=== PATIENT | female | born 1955 | race Caucasian/White ===

== ENCOUNTER → 2017-02-04 | Outpatient (CLI) | payer OTHER ==
--- NOTE | 2017-02-05 11:33 | MM ---
Reason for exam: screening (asymptomatic). Baseline mammogram. History: Patient is postmenopausal. Physical Findings: Nurse did not find any significant physical abnormalities on exam. MG Screening Mammo w CAD Bilateral CC and MLO view(s) were taken. There are scattered fibroglandular densities. Finding: There are grouped/clustered calcifications in the upper outer quadrant, middle position of the left breast 5cm from the nipple. Focal asymmetry in the left upper outer quadrant. These results were verbally communicated with the patient and result sheet given to the patient on 02/04/17. ASSESSMENT: Incomplete: need additional imaging evaluation, BI-RAD 0 RECOMMENDATION: Special view mammogram of the left breast. If lesion persists on supplemental views, image directed ultrasound is recommended. [facility] will attempt to contact patient to return for supplemental views and ultrasound if indicated.
--- NOTE | 2017-02-05 11:38 | MM ---
Reason for exam: additional evaluation requested from abnormal screening. History: Patient is postmenopausal. Physical Findings: Breast exam preformed at baseline screening. MG Work Up Mamm w CAD LT LM, CC with magnification, and LM with magnification view(s) were taken of the left breast. There are scattered fibroglandular densities. Finding: There are coarse heterogeneous, grouped/clustered calcifications in the upper outer quadrant, anterior position of the left breast. These results were verbally communicated with the patient and result sheet given to the patient on 02/04/17. ASSESSMENT: Suspicious, BI-RAD 4 RECOMMENDATION: Surgical consultation and stereotactic core biopsy of the left breast. Called Dr. Jesus with mammographic findings and has scheduled an appointment for the patient with Dr. Calixto. Biopsy scheduled for 02/12/17 at 8:00. PRELIMINARY REPORT CALLED AND FAXED TO DR. CALIXTO ON 02/05/17.
== END | disposition home or self-care (01) ==
LOC: RADMAMWWP 15:31
PROVIDERS: ATTEND Family Medicine
DX: Z12.31 Encounter for screening mammogram for malignant neoplasm of breast (principal); R92.8 Other abnormal and inconclusive findings on diagnostic imaging of breast
CPT/HCPCS: G0202; G0206

== ENCOUNTER 2018-03-29 14:20 | Emergency (ER) | payer OTHER ==
[2018-03-29 14:38] VITALS: PULSE 80; TEMP 98.5
[2018-03-29 14:59] LABS: Basophils # (A) 0.1 k/uL (0-0.2); Basophils % (A) 1 %; Eosinophils # (A) 0.2 k/uL (0-0.7); Eosinophils % (A) 1 %; HCT 42.3 % (34.0-46.0); HGB 13.4 gm/dL (11.4-16.0); Lymphocytes # (A) 0.9 k/uL (1.0-4.8); Lymphocytes % (A) 6 %; MCH 28.7 pg (25.0-35.0); MCHC 31.7 g/dL (31.0-37.0); MCV 90.5 fL (80.0-100.0); Mean Platelet Volume 6.5; Monocytes # (A) 0.6 k/uL (0-1.0); Monocytes % (A) 4 %; Neutrophils # (A) 12.5 k/uL (1.3-7.7); Neutrophils % (A) 87 %; Platelet Count 480 k/uL (150-450); RBC 4.67 m/uL (3.80-5.40); RDW 14.5 % (11.5-15.5); WBC 14.3 k/uL (3.8-10.6)
[2018-03-29 15:09] LABS: ALT 60 U/L (9-52); AST 111 U/L (14-36); Albumin 3.5 g/dL (3.5-5.0); Alkaline Phosphatase 466 U/L (38-126); Amylase 52 U/L (30-110); Anion Gap 15 mmol/L; Blood Urea Nitrogen 11 mg/dL (7-17); Calcium 9.2 mg/dL (8.4-10.2); Carbon Dioxide 24 mmol/L (22-30); Chloride 97 mmol/L (98-107); Glucose 94 mg/dL (74-99); Lipase 96 U/L (23-300); Potassium 3.7 mmol/L (3.5-5.1); Sodium 136 mmol/L (137-145); Total Bilirubin 7.4 mg/dL (0.2-1.3)
[2018-03-29] MEDS ORDERED: ONDANSETRON 4 MG/2 ML VIAL IVP STA (16:37)
[2018-03-29] MEDS ORDERED: SODIUM CHLORIDE 0.9% 1,000 ML IV STA (16:37)
[2018-03-29] MEDS ORDERED: MORPHINE SULFATE 4 MG/ML SYRINGE IV STA (16:37)
--- NOTE | 2018-03-29 16:42 | ED ---
General Adult HPI - General Chief complaint: Recheck/Abnormal Lab/Rx Stated complaint: dehydration, R side pain, CA PT Time Seen by Provider: 03/29/18 15:46 Source: patient, family, RN notes reviewed Mode of arrival: wheelchair Limitations: no limitations - History of Present Illness Initial comments: 62-year-old female with a past medical history of liver cancer diagnosed 8 weeks ago with biliary drain placement presents to the emergency department for a chief complaint of right sided abdominal pain. Patient states this has been ongoing for the past few days. Patient is nauseous and has not had fluids or food in the past 2 days. She states her pain is not controlled at home at this time. Patient denies fevers or chills. Patient has not yet started chemotherapy and is awaiting port placement.Patient has no other complaints at this time including shortness of breath, chest pain, headache, or visual changes. - Related Data Home Medications Medication Instructions Recorded Confirmed Ciprofloxacin HCl [Cipro] 500 mg PO BID 03/29/18 03/29/18 Dronabinol [Marinol] 10 mg PO HS 03/29/18 03/29/18 Mag Hydrox/Al Hydrox/Simeth 15 ml PO Q6HR PRN 03/29/18 03/29/18 [Maalox] Prochlorperazine [Compazine] 5 mg PO Q6HR PRN 03/29/18 03/29/18 Ranitidine HCl [Zantac] 150 mg PO DAILY 03/29/18 03/29/18 diphenhydrAMINE [Benadryl] 25 mg PO Q6HR 03/29/18 03/29/18 fentaNYL [Duragesic 50MCG/HR] 1 patch TRANSDERM Q72H 03/29/18 03/29/18 hydrOXYzine HCL [Atarax] 25 mg PO Q6HR 03/29/18 03/29/18 oxyCODONE HCL [OxyIR] 5 mg PO Q6HR PRN 03/29/18 03/29/18 Allergies Allergy/AdvReac Type Severity Reaction Status Date / Time codeine Allergy Nausea & Verified 03/29/18 15:56 Vomiting & Diarrhea Review of Systems ROS Statement: Those systems with pertinent positive or pertinent negative responses have been documented in the HPI. ROS Other: All systems not noted in ROS Statement are negative. Past Medical History Past Medical History: Cancer History of Any Multi-Drug Resistant Organisms: None Reported Past Surgical History: Orthopedic Surgery, Tubal Ligation Additional Past Surgical History / Comment(s): biliary duct placement Past Psychological History: No Psychological Hx Reported Smoking Status: Never smoker Past Alcohol Use History: None Reported Past Drug Use History: None Reported General Exam Limitations: no limitations General appearance: alert, in no apparent distress Head exam: Present: atraumatic, normocephalic, normal inspection Eye exam: Present: normal appearance, PERRL, EOMI, scleral icterus (bilat). Absent: conjunctival injection, periorbital swelling ENT exam: Present: normal exam, mucous membranes moist Neck exam: Present: normal inspection, full ROM. Absent: tenderness, meningismus, lymphadenopathy Respiratory exam: Present: normal lung sounds bilaterally. Absent: respiratory distress, wheezes, rales, rhonchi, stridor Cardiovascular Exam: Present: regular rate, normal rhythm, normal heart sounds. Absent: systolic murmur, diastolic murmur, rubs, gallop, clicks GI/Abdominal exam: Present: tenderness (Right lower quadrant and right upper quadrant tenderness with guarding present.), guarding, other (There is a drain to in the right upper quadrant of the abdomen, non-erythematous, no evidence of infection.) Neurological exam: Present: alert, oriented X3, CN II-XII intact Psychiatric exam: Present: normal affect, normal mood Skin exam: Absent: normal color (jaundice) Course Vital Signs 03/29/18 14:33 Temperature 98.5 F Pulse Rate 80 Respiratory 18 Rate Blood Pressure 117/77 O2 Sat by Pulse 98 Oximetry EKG Findings - EKG Comments: EKG Findings:: EKG shows a normal sinus rhythm, ventricular rate 72, WA interval 128, QTc 473 Medical Decision Making - Medical Decision Making 62-year-old female presents to the emergency department for a chief complaint of right-sided abdominal pain 2 days. Patient has a history of liver cancer diagnosed 8 weeks ago with biliary drain placement. Patient states the pain has been ongoing for the past few days. She states she has been nauseous and not tolerating solids or liquids. Patient currently awaiting port placement, has not had chemotherapy yet. Patient is afebrile in the emergency department, with a pulse of 80 and a normotensive blood pressure. CBC does show a white count of 14. Total bilirubin 7.4, last read showed 8.4 on the 03/26/2018. Alkaline phosphatase 466 which is is elevated from 395 on 03/26/2018. CT of the abdomen shows dilation of the anterior biliary tree. There is dilated gallbladder suggestive of cystic duct obstruction. No significant dilation of the posterior right hepatic lobe bile ducts. Drainage catheter malfunction should be considered due to dilated gallbladder. Patient had a drain placed at 314. She will be transferred there, admitted to Dr Pace. - Lab Data Result diagrams: 03/29/18 14:47 03/29/18 14:47 Lab Results 03/29/18 03/29/18 03/29/18 Range/Units 14:47 14:47 14:47 WBC 14.3 H (3.8-10.6) k/uL RBC 4.67 (3.80-5.40) m/uL Hgb 13.4 (11.4-16.0) gm/dL Hct 42.3 (34.0-46.0) % MCV 90.5 (80.0-100.0) fL MCH 28.7 (25.0-35.0) pg MCHC 31.7 (31.0-37.0) g/dL RDW 14.5 (11.5-15.5) % Plt Count 480 H (150-450) k/uL Neutrophils % 87 % Lymphocytes % 6 % Monocytes % 4 % Eosinophils % 1 % Basophils % 1 % Neutrophils # 12.5 H (1.3-7.7) k/uL Lymphocytes # 0.9 L (1.0-4.8) k/uL Monocytes # 0.6 (0-1.0) k/uL Eosinophils # 0.2 (0-0.7) k/uL Basophils # 0.1 (0-0.2) k/uL Sodium 136 L (137-145) mmol/L Potassium 3.7 (3.5-5.1) mmol/L Chloride 97 L (98-107) mmol/L Carbon Dioxide 24 (22-30) mmol/L Anion Gap 15 mmol/L BUN 11 (7-17) mg/dL Creatinine 0.58 (0.52-1.04) mg/dL Est GFR (CKD-EPI)AfAm >90 (>60 ml/min/1.73 sqM) Est GFR (CKD-EPI)NonAf >90 (>60 ml/min/1.73 sqM) Glucose 94 (74-99) mg/dL Calcium 9.2 (8.4-10.2) mg/dL Total Bilirubin 7.4 H (0.2-1.3) mg/dL AST 111 H (14-36) U/L ALT 60 H (9-52) U/L Alkaline Phosphatase 466 H (38-126) U/L Troponin I <0.012 (0.000-0.034) ng/mL Total Protein 7.0 (6.3-8.2) g/dL Albumin 3.5 (3.5-5.0) g/dL Amylase 52 (30-110) U/L Lipase 96 (23-300) U/L Urine Color Urine Appearance (Clear) Urine pH (5.0-8.0) Ur Specific [place] (1.001-1.035) Urine Protein (Negative) Urine Glucose (UA) (Negative) Urine Ketones (Negative) Urine Blood (Negative) Urine Nitrite (Negative) Urine Bilirubin (Negative) Urine Urobilinogen (<2.0) mg/dL Ur Leukocyte Esterase (Negative) Urine RBC (0-5) /hpf Urine WBC (0-5) /hpf Ur Squamous Epith Cells (0-4) /hpf Urine Mucus (None) /hpf 03/29/18 Range/Units 16:15 WBC (3.8-10.6) k/uL RBC (3.80-5.40) m/uL Hgb (11.4-16.0) gm/dL Hct (34.0-46.0) % MCV (80.0-100.0) fL MCH (25.0-35.0) pg MCHC (31.0-37.0) g/dL RDW (11.5-15.5) % Plt Count (150-450) k/uL Neutrophils % % Lymphocytes % % Monocytes % % Eosinophils % % Basophils % % Neutrophils # (1.3-7.7) k/uL Lymphocytes # (1.0-4.8) k/uL Monocytes # (0-1.0) k/uL Eosinophils # (0-0.7) k/uL Basophils # (0-0.2) k/uL Sodium (137-145) mmol/L Potassium (3.5-5.1) mmol/L Chloride (98-107) mmol/L Carbon Dioxide (22-30) mmol/L Anion Gap mmol/L BUN (7-17) mg/dL Creatinine (0.52-1.04) mg/dL Est GFR (CKD-EPI)AfAm (>60 ml/min/1.73 sqM) Est GFR (CKD-EPI)NonAf (>60 ml/min/1.73 sqM) Glucose (74-99) mg/dL Calcium (8.4-10.2) mg/dL Total Bilirubin (0.2-1.3) mg/dL AST (14-36) U/L ALT (9-52) U/L Alkaline Phosphatase (38-126) U/L Troponin I (0.000-0.034) ng/mL Total Protein (6.3-8.2) g/dL Albumin (3.5-5.0) g/dL Amylase (30-110) U/L Lipase (23-300) U/L Urine Color Dark Brown Urine Appearance Cloudy H (Clear) Urine pH 5.5 (5.0-8.0) Ur Specific [place] 1.019 (1.001-1.035) Urine Protein 1+ H (Negative) Urine Glucose (UA) Negative (Negative) Urine Ketones 2+ H (Negative) Urine Blood Negative (Negative) Urine Nitrite Negative (Negative) Urine Bilirubin 2+ H (Negative) Urine Urobilinogen 2.0 (<2.0) mg/dL Ur Leukocyte Esterase Small H (Negative) Urine RBC 2 (0-5) /hpf Urine WBC 9 H (0-5) /hpf Ur Squamous Epith Cells 8 H (0-4) /hpf Urine Mucus Many H (None) /hpf Disposition Clinical Impression: Liver cancer, Gallbladder dilatation Disposition: OTHER INSTITUTION NOT DEFINED Condition: Good Referrals: Jhonatan Solomon MD [Primary Care Provider] - 1-2 days - Out of Hospital Transfer - Req. Specs Out of Hospital Transfer - Requested Specifics: Other Non-Acute ([facility])
[2018-03-29 17:06] LABS: Appearance,Urine Cloudy (Clear); Bilirubin,Urine 2+ (Negative); Blood,Urine Negative (Negative); Color,Urine Dark Brown; Glucose,Urine (UA) Negative (Negative); Ketones,Urine 2+ (Negative); Leukocyte Esterase,Urine Small (Negative); Mucus,Urine Many /hpf; Nitrite,Urine Negative (Negative); PH, Urine 5.5 (5.0-8.0); Protein,Urine 1+ (Negative); RBC,Urine 2 /hpf (0-5); Specific Gravity,Urine 1.019 (1.001-1.035); Squamous Epithelial Cell,Urine 8 /hpf (0-4); WBC,Urine 9 /hpf (0-5)
--- NOTE | 2018-03-29 17:24 | XR ---
EXAMINATION TYPE: XR chest 2V DATE OF EXAM: 03/29/2018 COMPARISON: NONE HISTORY: Abdominal pain TECHNIQUE: Frontal and lateral views of the chest are obtained. FINDINGS: Heart and mediastinum are normal. There is no heart failure. Lungs are clear of consolidat ion. There is slight elevated right diaphragm. Bony thorax is intact. There is a catheter over the ri ght upper quadrant of the abdomen. IMPRESSION: Slight elevated right diaphragm. Otherwise negative exam. Normal heart.
--- NOTE | 2018-03-29 17:39 | CT ---
EXAMINATION TYPE: CT abdomen pelvis w con DATE OF EXAM: 03/29/2018 COMPARISON: None HISTORY: Right sided abdominal pain with nausea. History of cancer to biliary region. CT DLP: 644.3 mGycm Automated exposure control for dose reduction was used. TECHNIQUE: Helical acquisition of images was performed from the lung bases through the pelvis. CONTRAST: Performed without Oral Contrast and with IV Contrast, patient injected with 100 mL of Isovue 300. FINDINGS: There is percutaneous drainage catheter in the biliary tree in the right upper quadrant. There is a b iliary stent in the common bile duct. There are a few air bubbles in the anterior bile ducts. There i s mild dilation of the bile ducts in the anterior right lobe of the liver. Gallbladder is dilated wit h slight thickening of the wall. Gallbladder measures 5.7 cm in diameter. There are calcified splenic granulomata. I see no evidence of a pancreatic mass. There is no adrenal mass. Kidneys show satisfactory contrast opacification. There is no hydronephrosi s. There are 1 cm cortical cysts in the right kidney. There is no retroperitoneal adenopathy. Bladder distends smoothly. There is no inguinal hernia. There are multiple dilated pelvic veins on th e left side. Uterus is anteverted. There is some cystic fluid in the right side of the pelvis. Some o f the fluid appears to be free fluid. There is a 5.5 cm cyst at the floor of the pelvis on the right side adjacent to the uterus that is probably ovarian cyst. There is no ascites. There are sigmoid div erticula without evidence of diverticulitis. There is no mesenteric edema or adenopathy. I do not see any significant adenopathy at the hepatopancreatic lymph nodes. There is small umbilical hernia that contains fat. IMPRESSION: THERE IS SOME DILATION OF THE ANTERIOR BILIARY TREE. THERE IS DILATED GALLBLADDER SUGGESTIVE OF CYSTI C DUCT OBSTRUCTION. I SEE NO SIGNIFICANT DILATION OF THE POSTERIOR RIGHT HEPATIC LOBE BILE DUCTS. DRA SHEARER CATHETER MALFUNCTION SHOULD BE CONSIDERED IN VIEW OF THE DILATED GALLBLADDER. CATHETERS APPEAR TO BE IN GOOD POSITION. Large cyst in the pelvis is probably ovarian cyst. Minimal free fluid in the pelvis on the right side .
[2018-03-29] MEDS ORDERED: MORPHINE SULFATE 4 MG/ML SYRINGE IVP STA (20:49)
[2018-03-29 21:00] VITALS: BP 120/79; RESP 16
== END 2018-03-29 20:59 | disposition other institution (70) ==
LOC: EC 14:20
DX: K82.8 Other specified diseases of gallbladder (principal); C22.9 Malignant neoplasm of liver, not specified as primary or secondary; R74.8 Abnormal levels of other serum enzymes; Z79.891 Long term (current) use of opiate analgesic; Z79.899 Other long term (current) drug therapy; Z88.5 Allergy status to narcotic agent; Z96.89 Presence of other specified functional implants
CPT/HCPCS: 36415; 93005; 80053; 82150; 83690; 84484; 85025; 81001; 87040; 87086; 87077; 87186; 71046; 74177; 99285; 96374; 96375; 96376; 96361; J2270; J2405; Q9967

== ENCOUNTER 2018-04-14 10:08 | Day surgery (SDC) | payer OTHER ==
[2018-04-09 12:42] VITALS: BMI 23.1
[~2018-04-14 10:08] MED LIST: DEXAMETHASONE SOD PHOSPHATE 10 MG/ML 1 ML VIAL IV ONE; LACTATED RINGERS 1,000 ML IV SCH; MIDAZOLAM 2 MG/2 ML VIAL IV PRN; ONDANSETRON 4 MG/2 ML VIAL IVP ONE; Pre Op ABX Message 1 EACH MISC MISCELLANE ONE; SCOPOLAMINE 1.5MG/72HR PATCH TRANSDERM ONE; fentaNYL (PF) 50 MCG/ML 2 ML AMP IV PRN
[2018-04-14] MEDS ORDERED: LIDOCAINE (PF) 10 MG/ML 2 ML VIAL SQ ONE (12:15)
[2018-04-14] MEDS ORDERED: HEPARIN SODIUM,PORCINE 100 UNIT/ML 5 ML VIAL IV ONE (12:15)
[2018-04-14] MEDS ORDERED: LIDOCAINE 1% INJ 10MG/ML (20 ML MDV) SQ ONE ×2 (12:15)
--- NOTE | 2018-04-14 12:23 | P.GSHP ---
History of Present Illness H&P Date: 04/14/18 Chief Complaint: Cholangiocarcinoma 62-year-old female recently diagnosed with cholangiocarcinoma. Here today for Port-A-Cath placement. Patient has had significant dry heaves for the last few days. She has had very little oral liquid or solid intake because of her bad nausea. Taking a large volume of pain medications. Minimal emesis with her nausea. Past Medical History Past Medical History: Cancer, GERD/Reflux Additional Past Medical History / Comment(s): CA BILE DUCT 02/05/18, HAS 2 DRAIN TUBES. POOR APPETITE, DRY HEAVES CURRENTLY. WGT LOSS 30# SINCE 01/2018. History of Any Multi-Drug Resistant Organisms: None Reported Past Surgical History: Orthopedic Surgery, Tubal Ligation Additional Past Surgical History / Comment(s): RT KNEE SCOPE. CATARACTS. Biliary duct STENTS X2, DRAIN TUBES X3 PLACED - THRU [facility]. Past Anesthesia/Blood Transfusion Reactions: Motion Sickness, Postoperative Nausea & Vomiting (PONV) Past Psychological History: Depression Additional Psychological History / Comment(s): SOME R/T HEALTH Smoking Status: Never smoker Past Alcohol Use History: None Reported Past Drug Use History: None Reported - Past Family History Mother Family Medical History: Myocardial Infarction ([place]) Father Family Medical History: COPD Medications and Allergies Home Medications Medication Instructions Recorded Confirmed Type Dronabinol [Marinol] 10 mg PO HS 03/29/18 04/09/18 History Mag Hydrox/Al Hydrox/Simeth 15 ml PO Q6HR PRN 03/29/18 04/09/18 History [Maalox] Prochlorperazine [Compazine] 5 mg PO Q6HR PRN 03/29/18 04/09/18 History Ranitidine HCl [Zantac] 150 mg PO DAILY 03/29/18 04/09/18 History diphenhydrAMINE [Benadryl] 25 mg PO Q6HR PRN 03/29/18 04/09/18 History Gabapentin [Neurontin] 100 mg PO TID 04/09/18 04/09/18 History Methocarbamol [Robaxin] 500 mg PO TID 04/09/18 04/09/18 History fentaNYL 75MCG/HR PATCH [Duragesic 75 mcg TRANSDERM Q72H 04/09/18 04/09/18 History 75MCG/HR] oxyCODONE HCL 10 mg PO Q3H PRN 04/09/18 04/09/18 History Allergies Allergy/AdvReac Type Severity Reaction Status Date / Time codeine Allergy Nausea & Verified 04/09/18 12:13 Vomiting & Diarrhea Surgical - Exam Vital Signs Temp Pulse Resp BP Pulse Ox 98.0 F 73 18 139/66 96 04/14/18 10:34 04/14/18 10:34 04/14/18 10:34 04/14/18 10:34 04/14/18 10:34 Physical exam: General: Well-developed, well-nourished HEENT: Normocephalic, sclerae nonicteric Abdomen: Nontender, nondistended Extremities: No edema Neuro: Alert and oriented Results - Labs 04/14/18 10:45 Abnormal Lab Results - Last 24 Hours (Table) 04/14/18 Range/Units 10:45 Sodium 136 L (137-145) mmol/L Chloride 92 L (98-107) mmol/L Diabetes panel 04/14/18 Range/Units 10:45 Sodium 136 L (137-145) mmol/L Potassium 4.0 (3.5-5.1) mmol/L Chloride 92 L (98-107) mmol/L Carbon Dioxide 30 (22-30) mmol/L Pituitary panel 04/14/18 Range/Units 10:45 Sodium 136 L (137-145) mmol/L Potassium 4.0 (3.5-5.1) mmol/L Chloride 92 L (98-107) mmol/L Carbon Dioxide 30 (22-30) mmol/L Adrenal panel 04/14/18 Range/Units 10:45 Sodium 136 L (137-145) mmol/L Potassium 4.0 (3.5-5.1) mmol/L Chloride 92 L (98-107) mmol/L Carbon Dioxide 30 (22-30) mmol/L Assessment and Plan (1) Cholangiocarcinoma Narrative/Plan: Will proceed with Port-A-Cath placement at this time. Risks of bleeding, infection, DVT, pneumothorax, catheter malfunction, anesthesia related complications were discussed. The patient understands and wishes to proceed. Patient may require admission for hydration and oncology evaluation postoperatively. Current Visit: Yes Status: Acute Code(s): C22.1 - INTRAHEPATIC BILE DUCT CARCINOMA SNOMED Code(s): 361067972
[2018-04-14] MEDS ORDERED: fentaNYL (PF) 50 MCG/ML 2 ML AMP ONE (12:30)
[2018-04-14] MEDS ORDERED: MIDAZOLAM 2 MG/2 ML VIAL ONE (12:30)
[2018-04-14] MEDS ORDERED: PROPOFOL 10 MG/ML 20 ML VIAL IV ONE (12:30)
[2018-04-14] MEDS ORDERED: SODIUM CHLORIDE 0.9% 50 ML with ceFAZolin 2,000 MG IV ONE ×2 (12:50)
[2018-04-14 13:31] VITALS: TEMP 97
--- NOTE | 2018-04-14 13:32 | FL ---
EXAMINATION TYPE: FL guided central line placemt DATE OF EXAM: 04/14/2018 CLINICAL HISTORY: Port-A-Cath placement for cancer. TECHNIQUE: Fluoroscopy. COMPARISON: None. FINDINGS: Fluoroscopic guidance was provided during Mediport catheter insertion procedure performed by Dr. Calixto. A total of 21 seconds of fluoroscopic time was utilized during the procedure and singl e spot fluoroscopic intraoperative image is acquired. Single image acquired shows catheter tip near c avoatrial junction. IMPRESSION: As Above.
--- NOTE | 2018-04-14 14:27 | XR ---
EXAMINATION TYPE: XR chest 1V confirm line [facility] DATE OF EXAM: 04/14/2018 COMPARISON: Prior chest x-ray 03/29/2018 HISTORY: Status post Port-A-Cath placement TECHNIQUE: Single frontal view of the chest is obtained. FINDINGS: There is been interval placement of a Port-A-Cath which lies in the right pectoral region, right internal jugular approach, distal tip overlying the superior vena cava right atrial junction. Patient is rotated. No evident pneumothorax or pleural effusion. No other significant interval change . IMPRESSION: No evident complication status post central venous catheter placement.
--- NOTE | 2018-04-14 14:31 | P.OP ---
Date of Procedure: 04/14/18 Procedure(s) Performed: PREOPERATIVE DIAGNOSIS: Cholangiocarcinoma POSTOPERATIVE DIAGNOSIS: Same PROCEDURE: Port-A-Cath placement SURGEON: Marily EBL: Minimal ANESTHESIA: Sedation COMPLICATIONS: None OPERATIVE PROCEDURE: Patient was brought and placed on the operative table in the supine position. The patient was sedated per anesthesia that time. The chest and neck were prepped and draped in usual sterile fashion. The ultrasound probe was used to identify the location of the right internal jugular vein. The skin was localized with lidocaine. The Seldinger needle was advanced into the IJ under ultrasound guidance. The wire was advanced through the needle under fluoroscopic guidance into the superior vena cava. A port pocket was created in the right infraclavicular location. The catheter was tunneled from the wire entrance site to the port pocket. The port was then connected to the catheter. The dilator introducer was threaded over the guidewire. The guidewire and dilator were then removed. The catheter was advanced through the introducer and introducer was then removed. The tip was seen to be in the right atrial junction. Port was flushed with both saline and a Hep-Lock solution. There was good flow both in and out of the port. The port was sutured in underlying tissues using 3-0 silk sutures. The subcutaneous tissues were reapproximated using 3-0 Vicryl sutures and the skin at both locations using 4-0 Monocryl sutures. Skin glue and sterile dressings then applied. DISPOSITION: Stable to recovery room
[2018-04-14 15:40] VITALS: RESP 16
[2018-04-14 16:40] VITALS: BP 118/68; PULSE 76
== END 2018-04-14 17:05 | disposition home or self-care (01) ==
LOC: OR 10:08
PROVIDERS: ATTEND Surgery
DX: C24.9 Malignant neoplasm of biliary tract, unspecified (principal); K21.9 Gastro-esophageal reflux disease without esophagitis; F32.9 Major depressive disorder, single episode, unspecified; G89.29 Other chronic pain; Z79.891 Long term (current) use of opiate analgesic; Z79.899 Other long term (current) drug therapy; Z88.5 Allergy status to narcotic agent
CPT/HCPCS: 80051; 77001; 36561; 76937; C1788; J2250; J1642; J1100; J2405; J2001; J3010; J0690; J2704

== ENCOUNTER → 2018-04-22 | Outpatient (CLI) | payer OTHER ==
--- NOTE | 2018-04-22 16:25 | XR ---
EXAMINATION TYPE: XR KUB DATE OF EXAM: 04/22/2018 COMPARISON: NONE HISTORY: Pain TECHNIQUE: Single supine KUB image of the abdomen is obtained FINDINGS: Small bowel demonstrates no evidence for dilatation or air fluid levels. Gas and fecal material is seen in non-distended colon. No convincing evidence for pneumoperitoneum. Partially imaged biliary drainage catheter. No unusual calcifications. The lung bases are clear. The osseous structures are intact. IMPRESSION: 1. Overall nonobstructive bowel gas pattern.
== END | disposition home or self-care (01) ==
LOC: RADXRMAIN 15:49
PROVIDERS: ATTEND Internal Medicine Hematology & Oncology
DX: C22.1 Intrahepatic bile duct carcinoma (principal)
CPT/HCPCS: 74018

== ENCOUNTER 2018-05-12 13:37 | Inpatient (IN) | payer OTHER ==
[2018-05-12 15:58] VITALS: BMI 22.6
[2018-05-12 17:24] LABS: INR 1.4 (<1.2); Partial Thromboplastin Time 27.9 sec (22.0-30.0); Prothrombin Time 14.4 sec (9.0-12.0)
[2018-05-12 17:26] LABS: ALT 35 U/L (9-52); AST 51 U/L (14-36); Albumin 2.8 g/dL (3.5-5.0); Alkaline Phosphatase 453 U/L (38-126); Anion Gap 9 mmol/L; Blood Urea Nitrogen 13 mg/dL (7-17); Calcium 8.1 mg/dL (8.4-10.2); Carbon Dioxide 31 mmol/L (22-30); Chloride 98 mmol/L (98-107); Glucose 118 mg/dL (74-99); Magnesium 1.6 mg/dL (1.6-2.3); Phosphorus 2.3 mg/dL (2.5-4.5); Sodium 138 mmol/L (137-145); Total Bilirubin 4.8 mg/dL (0.2-1.3); Total Protein 5.5 g/dL (6.3-8.2)
[2018-05-12 17:27] LABS: Potassium 2.5 mmol/L (3.5-5.1)
[2018-05-12] MEDS ORDERED: POTASSIUM CHLORIDE ER 20 MEQ TAB.ER PO STA (17:39)
--- NOTE | 2018-05-12 17:43 | XR ---
EXAMINATION TYPE: XR abdomen acute w cxr 4 views DATE OF EXAM: 05/12/2018 COMPARISON: NONE HISTORY: Constipation x10 days TECHNIQUE: Supine, upright, and left side down lateral decubitus views of the abdomen are obtained. FINDINGS: Chest: Right IJ central line tip superimposed over the distal SVC. The lungs are clear. The pleural spaces a re negative. Cardiomediastinal silhouette and bones and soft tissues are unremarkable. Abdomen and pelvis: Right upper quadrant percutaneous catheters enter from a right lateral approach. No pneumoperitoneum. Bowel gas pattern is negative for pneumatosis or bowel obstruction. However, the re is prominent volume of stool throughout the entire colon, including the rectosigmoid. No acute skeletal or soft tissue findings. IMPRESSION: Constipation radiographic pattern.
[2018-05-12] MEDS ORDERED: NA PHOS,M-B/NA PHOS,DI-BA 133 ML ENEMA RECTAL ONE (17:45)
[2018-05-12] MEDS ORDERED: LORazepam 0.5 MG TAB PO PRN (17:46)
[2018-05-12] MEDS ORDERED: diphenhydrAMINE 25 MG CAP PO PRN (17:51)
[2018-05-12] MEDS ORDERED: PROCHLORPERAZINE 10 MG TAB PO PRN (17:51)
[2018-05-12] MEDS ORDERED: ALTEPLASE 2 MG VIAL (CATHFLO) IV STA (17:55)
--- NOTE | 2018-05-12 18:07 | P.HPIM ---
History of Present Illness H&P Date: 05/12/18 Chief Complaint: Weakness, Debility, Dehydration Carrie is a pleasant 62 year old female patient who is well known to our practice for her recent diagnosis of Adenocarcinoma, consistent with Pancreatobiliary origin. She originally was diagnosed from Lymph node biopsy on 02/08/18 after presenting with obtructive, painless jaundice. ERCP was completed and multiple stents and PTC were placed. On 04/09/18 MRI of abdomen revealed large mass measuring 5.4x4.6x3.7cm centrally in liver abupting porthepatic with multiple enlarged lymph nodes. She was not a surgical candidate , therefore she was refcommended for chemotherapy, this is when she decided to transfer care to primary oncologist Dr. Mortensen to receive closer to home. My first time meeting Carrie was on April 22. She appeared at that time very ill , cachetic. She was accompanied by son and who expressed frustration for her declining state. That appointment we had a long discussion on goals of care. We discussed options of hospi ce versus palliative versus aggressive treatment, with knowing the aggressive treatment was still in the realm of a palliative/non-curable goal. Prior to starting chemo her performance status was declining radidly as she had a difficult time holding food down, she had perisstent nausea and vomiting, difficulties moving bowels and was not trying to increase overall strength as apppeared she was rather depressed about diagnosis and outcomes. On April 22: Home care through Palliative care services was consulted. We arranged for PT/OT at home, Increased her pain medication to increase comfort (Fentanyl patch and oxycodone), increased the intensity of her bowel regimen (which apparently has not remained compliant with ), Initiated Marinol and Megace to assist with anorexia, decreased po intake, increased overall antiemetic regimen (persistent nausea felt to be related to persistent constipation, which was worsened with dehydration, lack of eating, drinking and minimal activity. Low dose ativan was ordered for nausea and depression, abdominal xray confirmed large amount stool, no obstruction, therfore Senna s and miralax ordered. She went on to have decreased dose cycle one of cisplatin and gemsar, she tolerated well and with supportive care she was improving, and working with palliative care at home to rebuild strength. Today she presented to office to see Dr. Mortensen, her was with her. She has not been eating or drinking the past two days, per no BM the past 10 days, she takes supportive medications when they can remeber although she is sleeping a lot that he doiesnt have her taking daily. - Direct admission to [facility]: Fore Severe Dehydration secondary to failure to thrive Full stern culture, labs, Abdominal and chest imaging has been ordered. I discussed goals of care again with , we discussed code status although he was not able to make a descision as he states I want her to live. We will re- discuss when she returns from scan. She is inappropriate with her responses and answers are a little confused although her voice is clear. Her skin is dry and flakey she is clinically dehydrated. No fevers or chills. unable to move legs, they are bent and she is starting to have skin breakdown on back side. She states she can not tell when she has to urinate and no desire for BM. Review of Systems A 14 point review of systems assessed and completed, help of , negative except HPI. Past Medical History Past Medical History: Cancer, GERD/Reflux Additional Past Medical History / Comment(s): CA BILE DUCT 02/05/18, HAS 2 DRAIN TUBES. WGT LOSS 50# SINCE 01/2018. History of Any Multi-Drug Resistant Organisms: None Reported Past Surgical History: Orthopedic Surgery, Tubal Ligation Additional Past Surgical History / Comment(s): RT KNEE SCOPE. CATARACTS. Biliary duct STENTS X2, DRAIN TUBES X3 PLACED - THRU [facility]H. right chest port Past Anesthesia/Blood Transfusion Reactions: Motion Sickness, Postoperative Nausea & Vomiting (PONV) Past Psychological History: Depression Additional Psychological History / Comment(s): SOME R/T HEALTH Smoking Status: Never smoker Past Alcohol Use History: None Reported Past Drug Use History: None Reported - Past Family History Mother Family Medical History: Myocardial Infarction (VT) Father Family Medical History: COPD Medications and Allergies Home Medications Medication Instructions Recorded Confirmed Type Dronabinol [Marinol] 10 mg PO HS 03/29/18 05/12/18 History diphenhydrAMINE [Benadryl] 25 mg PO Q6HR PRN 03/29/18 05/12/18 History fentaNYL 75MCG/HR PATCH [Duragesic 75 mcg TRANSDERM Q72H 04/09/18 05/12/18 History 75MCG/HR] oxyCODONE HCL 10 mg PO Q3H PRN 04/09/18 05/12/18 History Dexamethasone [Decadron] 4 mg PO DIRECTED 05/12/18 05/12/18 History LORazepam [Ativan] 0.5 mg PO Q6HR 05/12/18 05/12/18 History Lactulose 20 gram PO DAILY 05/12/18 05/12/18 History Na Phos,M-B/Na Phos,Di-Ba [Fleet 133 ml RECTAL DAILY PRN 05/12/18 05/12/18 History Adult] Nystatin 100,000 Unit/ml Susp 500,000 unit PO DIRECTED 05/12/18 05/12/18 History [Mycostatin Oral Susp] Omeprazole 20 mg PO BID 05/12/18 05/12/18 History Prochlorperazine Suppository 25 mg RECTAL DAILY PRN 05/12/18 05/12/18 History [Compazine] Prochlorperazine [Compazine] 10 mg PO Q6HR PRN 05/12/18 05/12/18 History Sennosides/Docusate Sodium [Candace 2 tab PO HS 05/12/18 05/12/18 History Colace] oxyCODONE HCL [Roxicodone] 5 mg PO Q6H PRN 05/12/18 05/12/18 History Allergies Allergy/AdvReac Type Severity Reaction Status Date / Time codeine Allergy Nausea & Verified 05/12/18 16:53 Vomiting & Diarrhea Physical Exam Vitals: Vital Signs Temp Pulse Resp BP Pulse Ox 05/12/18 16:06 98.4 F 100 16 134/66 97 Gen: Alert and Awake, confusion and innapropriate answer Mouth/OP with Thrush, Dry mucous membranes Neck Suppole, no lymphadenopathy Lungs are diminished bibasilar, No increased effort Heart is irreg and tachy abdomen hypoactive Bowel sounds, bili tube is draining. Extremities no edema, BLE Decreased strength and contracted Neurological exam unbale to follow to perform, focal defects noted. Results Comments: Platelets in 652, hgb 11.3wbc 8.2 total bili on 04/27/18 = 4.7 K = 3.3 on 04/27/18 and K-dur 40 daily x3 days was ordered states pharmacy did not have., Abdominal x-ray: report reviewed Thrombosis Risk Factor Assmnt - DVT/VTE Prophylaxis DVT/VTE Prophylaxis: Pharmacologic Prophylaxis ordered - Choose All That Apply Each Factor Represents 1 point: Medical pt on bed rest Each Risk Factor Represents 2 Points: Age 61-74 years, Patient confined to bed, Malignancy Other congenital or acquired thrombophilia - If yes, enter type in comment: No Thrombosis Risk Factor Assessment Total Risk Factor Score: 7 Thrombosis Risk Factor Assessment Level: High Risk Assessment and Plan Plan: Assessment and Recommendations: 1. Metastatic Cholangiocarcinoma: - Status POst cycle one of Cisplatin and Gemzar (D1,8q21D) on 04/30/18 - Tolerated well - Overall prognosis is poor, discussed code status with today, no decision made at this point. 2. Debility and acute on Chronic Critical Illness Myopathy: - Decreased movement, activity at home despite PT/OT in the home - Worsening and unable to ambulate - PT/OT ordered 3. Mental Status Changes and Increased Lethargy and confusion: - Neuro Checks q4 x24 hours - Likely multifactoral with component of hepatic encephalopathy, failure to thrice, and metastatic Cancer - Check MRI Brain to evaluate for brain metastasis - Stern Culture, Blood Cultures (port and peripheral, UA/Culture, and Chest Xray (no acute etiology on xray) 4. Hypokalemia, Hypophosphatemia, Hypomagnesium - Supp ordered - Recheck in am - Secondary to decreased PO intake. - Telemetry and stat EKG 5. Constipation: - No BM in 10days - No obstruction or free air on Xray, confirmed constipaiton - Intense bowel regimen ordered including fleets enema today and daily senna S and lactulose 6. Dehydration secondary to decreased PO intake: - IV Fluids - Topical Moisturizer - Re-mediation 7. Moderate protein Calorie Malnutrition secondary to decreased PO intake, Failure to thrive - Marinol 10mg po BID - Megace 800mg daily - Dieticien Consultation - Protein Shakes TID Plan: - Supportive care, Daily Labs, Physical and occupational therapy, close mental status monitoring - Stern Cultures - Intense bowel Reigmen - Replacement of electrolytes - Discussion with family related to overall goals and code status. No descisions at this time, palliative care does follow at home Greater than 45 minutes spent face to face counseling and coordinating care VTE Prophylaxis and GI Prophylaxis. Time with Patient: Greater than 30
[2018-05-12 18:50] LABS: Amorphous Sediment,Urine Occasional /hpf; Appearance,Urine Cloudy (Clear); Bilirubin,Urine 2+ (Negative); Blood,Urine Negative (Negative); Color,Urine Dark Brown; Glucose,Urine (UA) Negative (Negative); Hyaline Casts,Urine 9 /lpf (0-2); Ketones,Urine Trace (Negative); Leukocyte Esterase,Urine Small (Negative); Mucus,Urine Many /hpf; Nitrite,Urine Negative (Negative); PH, Urine 6.5 (5.0-8.0); Protein,Urine 1+ (Negative); RBC,Urine 1 /hpf (0-5); Specific Gravity,Urine 1.015 (1.001-1.035); Squamous Epithelial Cell,Urine 1 /hpf (0-4); Urobilinogen,Urine >12.0 mg/dL (<2.0); WBC,Urine 10 /hpf (0-5)
[2018-05-12] MEDS: PANTOPRAZOLE 40 MG TABLET PO SCH (19:20)
[2018-05-12] MEDS: MINERAL OIL-WHITE PETROLATUM 120 GM JAR TOPICAL PRN (19:36)
[2018-05-12] MEDS: POTASSIUM CHLORIDE 20 MEQ in WATER FOR INJECTION 1 100ML.BAG IVPB SCH ×2 (19:36→22:56)
[2018-05-12] MEDS: DRONABINOL 2.5 MG CAP PO SCH (19:36)
[2018-05-12] MEDS: SODIUM CHLORIDE 0.9% 1,000 ML IV SCH (19:37)
[2018-05-12] MEDS: CLOTRIMAZOLE TROCHE 10 MG TROCHE PO SCH ×2 (21:28→23:03)
[2018-05-12] MEDS: SENNOSIDES-DOCUSATE SODIUM 1 EACH TAB PO SCH (21:29)
[2018-05-12] MEDS: LACTULOSE 20 GM/30 ML CUP PO SCH (21:29)
--- NOTE | 2018-05-12 22:25 | MR ---
EXAMINATION TYPE: MR brain wo/w con DATE OF EXAM: 05/12/2018 COMPARISON: HISTORY: MS changes, weakness, post chemo, metastatic ca TECHNIQUE: Multiplanar, multisequence images of the brain and brainstem is performed without and with IV contras t, utilizing 6 mL intravenous Gadavist . FINDINGS: There is mild cerebral cortical atrophy. There is no mass effect nor midline shift. There i s no sign of intracranial hemorrhage. Brainstem is intact. On the FLAIR images there is slight increa sed signal in the periventricular white matter. There is a discrete 5 mm focus in the right posterior frontal lobe white matter. There is no evidence of acute cortical infarct. The contrast images show no pathologic enhancement. There is normal vascular enhancement of the anterior middle and posterior cerebral arteries and the venous sinuses. There is no evidence of sinus thrombosis. Corpus callosum is intact. Sella turcica appears intact. IMPRESSION: Single focus of increased signal in the right posterior frontal lobe white matter of unce rtain significance. Slight increased white matter signal pattern on the FLAIR images also of uncertai n significance. No evidence of metastatic disease. No evidence of cortical infarct.
[2018-05-13] MEDS: POTASSIUM CHLORIDE 20 MEQ in WATER FOR INJECTION 1 100ML.BAG IVPB SCH ×4 (01:29→18:22)
[2018-05-13 03:12] LABS: Iron Saturation 27.04 (12.00-45.00)
[2018-05-13 03:15] LABS: Folate, Serum 4.6 ng/mL
[2018-05-13] MEDS: CLOTRIMAZOLE TROCHE 10 MG TROCHE PO SCH ×4 (06:37→20:54)
[2018-05-13] MEDS: SODIUM CHLORIDE 0.9% 1,000 ML IV SCH (07:58)
[2018-05-13 09:36] LABS: HCT 29.8 % (34.0-46.0); MCH 27.6 pg (25.0-35.0); MCHC 33.4 g/dL (31.0-37.0); MCV 82.5 fL (80.0-100.0); Mean Platelet Volume 6.7; RBC 3.61 m/uL (3.80-5.40); RDW 14.5 % (11.5-15.5); WBC 9.1 k/uL (3.8-10.6)
[2018-05-13 09:41] LABS: ALT 34 U/L (9-52); AST 46 U/L (14-36); Albumin 2.4 g/dL (3.5-5.0); Alkaline Phosphatase 353 U/L (38-126); Anion Gap 7 mmol/L; Blood Urea Nitrogen 10 mg/dL (7-17); Calcium 7.3 mg/dL (8.4-10.2); Carbon Dioxide 32 mmol/L (22-30); Chloride 103 mmol/L (98-107); Glucose 109 mg/dL (74-99); Magnesium 1.4 mg/dL (1.6-2.3); Phosphorus 2.9 mg/dL (2.5-4.5); Sodium 142 mmol/L (137-145); Total Bilirubin 4.1 mg/dL (0.2-1.3); Total Protein 4.8 g/dL (6.3-8.2)
[2018-05-13 09:48] LABS: Platelet Count 284 k/uL (150-450)
[2018-05-13] MEDS ORDERED: NA PHOS,M-B/NA PHOS,DI-BA 133 ML ENEMA RECTAL STA (10:40)
--- NOTE | 2018-05-13 11:04 | P.PN ---
Subjective Progress Note Date: 05/13/18 Principal diagnosis: Hepatic encephalopathy, dehydration, FTT She is still very weak today, her potassium has increased from 2.5 to 3 after a total of 80meq, she will receive an addition 60meq in supp and will add to IV Hydration bag. Awaiting cultures from stern work-up. Fleets enema did provide positive bowel movement per nursing and patient. Objective - Vital Signs Vital signs: Vital Signs Temp 98.7 F 05/13/18 09:00 Pulse 86 05/13/18 09:00 Resp 17 05/13/18 09:00 BP 145/66 05/13/18 09:00 Pulse Ox 98 05/13/18 09:00 Intake & Output 05/12/18 05/13/18 05/13/18 18:59 06:59 18:59 Intake Total 1780 Output Total 550 Balance 1230 Weight 60 kg Intake: Intake, IV Titration 600 Amount Potassium Chloride 20 meq 200 In Water For Injection 1 100ml.bag @ 50 mls/hr IVPB Q4H JONI Rx#: [id number] Sodium Chloride 0.9% 1, 400 000 ml @ 100 mls/hr IV . Q10H JONI Rx#:[id number] Oral 1180 Output: Drainage 150 right bilary drain 150 Urine 400 Other: Voiding Method Indwelling Catheter Indwelling Catheter - Exam en: Alert and Awake, confusion and innapropriate answer Mouth/OP with Thrush, Dry mucous membranes Neck Suppole, no lymphadenopathy Lungs are diminished bibasilar, No increased effort Heart is irreg and tachy abdomen hypoactive Bowel sounds, bili tube is draining. Extremities no edema, BLE Decreased strength and contracted Neurological exam unbale to follow to perform, focal defects noted. - Labs CBC & Chem 7: 05/13/18 07:58 05/13/18 07:58 Labs: Abnormal Lab Results - Last 24 Hours (Table) 05/12/18 05/12/18 05/12/18 Range/Units 16:15 16:53 16:53 RBC (3.80-5.40) m/uL Hgb (11.4-16.0) gm/dL Hct (34.0-46.0) % PT 14.4 H (9.0-12.0) sec INR 1.4 H (<1.2) Potassium 2.5 L* (3.5-5.1) mmol/L Carbon Dioxide 31 H (22-30) mmol/L Creatinine 0.45 L (0.52-1.04) mg/dL Glucose 118 H (74-99) mg/dL Calcium 8.1 L (8.4-10.2) mg/dL Phosphorus 2.3 L (2.5-4.5) mg/dL Magnesium (1.6-2.3) mg/dL TIBC 196 L (228-460) ug/dL Ferritin 2113.3 H (10.0-291.0) ng/mL Total Bilirubin 4.8 H (0.2-1.3) mg/dL AST 51 H (14-36) U/L Alkaline Phosphatase 453 H (38-126) U/L Lactate Dehydrogenase (313-618) U/L Total Protein 5.5 L (6.3-8.2) g/dL Albumin 2.8 L (3.5-5.0) g/dL Vitamin B12 1028.0 H (200.0-944.0) pg/mL Urine Appearance (Clear) Urine Protein (Negative) Urine Ketones (Negative) Urine Bilirubin (Negative) Ur Leukocyte Esterase (Negative) Urine WBC (0-5) /hpf Amorphous Sediment (None) /hpf Hyaline Casts (0-2) /lpf Urine Mucus (None) /hpf 05/12/18 05/12/18 05/13/18 Range/Units 16:53 18:30 07:58 RBC 3.61 L (3.80-5.40) m/uL Hgb 10.0 L D (11.4-16.0) gm/dL Hct 29.8 L (34.0-46.0) % PT (9.0-12.0) sec INR (<1.2) Potassium (3.5-5.1) mmol/L Carbon Dioxide (22-30) mmol/L Creatinine (0.52-1.04) mg/dL Glucose (74-99) mg/dL Calcium (8.4-10.2) mg/dL Phosphorus (2.5-4.5) mg/dL Magnesium (1.6-2.3) mg/dL TIBC (228-460) ug/dL Ferritin (10.0-291.0) ng/mL Total Bilirubin (0.2-1.3) mg/dL AST (14-36) U/L Alkaline Phosphatase (38-126) U/L Lactate Dehydrogenase 944 H (313-618) U/L Total Protein (6.3-8.2) g/dL Albumin (3.5-5.0) g/dL Vitamin B12 (200.0-944.0) pg/mL Urine Appearance Cloudy H (Clear) Urine Protein 1+ H (Negative) Urine Ketones Trace H (Negative) Urine Bilirubin 2+ H (Negative) Ur Leukocyte Esterase Small H (Negative) Urine WBC 10 H (0-5) /hpf Amorphous Sediment Occasional H (None) /hpf Hyaline Casts 9 H (0-2) /lpf Urine Mucus Many H (None) /hpf 05/13/18 Range/Units 07:58 RBC (3.80-5.40) m/uL Hgb (11.4-16.0) gm/dL Hct (34.0-46.0) % PT (9.0-12.0) sec INR (<1.2) Potassium 3.0 L (3.5-5.1) mmol/L Carbon Dioxide 32 H (22-30) mmol/L Creatinine 0.45 L (0.52-1.04) mg/dL Glucose 109 H (74-99) mg/dL Calcium 7.3 L (8.4-10.2) mg/dL Phosphorus (2.5-4.5) mg/dL Magnesium 1.4 L (1.6-2.3) mg/dL TIBC (228-460) ug/dL Ferritin (10.0-291.0) ng/mL Total Bilirubin 4.1 H (0.2-1.3) mg/dL AST 46 H (14-36) U/L Alkaline Phosphatase 353 H (38-126) U/L Lactate Dehydrogenase (313-618) U/L Total Protein 4.8 L (6.3-8.2) g/dL Albumin 2.4 L (3.5-5.0) g/dL Vitamin B12 (200.0-944.0) pg/mL Urine Appearance (Clear) Urine Protein (Negative) Urine Ketones (Negative) Urine Bilirubin (Negative) Ur Leukocyte Esterase (Negative) Urine WBC (0-5) /hpf Amorphous Sediment (None) /hpf Hyaline Casts (0-2) /lpf Urine Mucus (None) /hpf Microbiology - Last 24 Hours (Table) 05/12/18 18:30 Urine Culture - Preliminary Urine,Catheterized Assessment and Plan Plan: Assessment and Recommendations: 1. Metastatic Cholangiocarcinoma: - Status Post cycle one of Cisplatin and Gemzar (D1,8q21D) on 04/30/18 - Tolerated well - Overall prognosis is poor, discussed code status with today, no decision made at this point. - Chemotherapy to remain on hold until improved overall performance status. 2. Debility and acute on Chronic Critical Illness Myopathy: - Decreased movement, activity at home despite PT/OT in the home - Worsening and unable to ambulate - PT/OT ordered 3. Mental Status Changes and Increased Lethargy and confusion: - Neuro Checks q4 x24 hours - Likely multifactoral with component of hepatic encephalopathy, failure to thrice, and metastatic Cancer - Check MRI Brain to evaluate for brain metastasis - Stern Culture, Blood Cultures (port and peripheral, UA/Culture, and Chest Xray (no acute etiology on xray) - Lactulose TID 4. Hypokalemia, Hypophosphatemia, Hypomagnesium - Supp ordered - Recheck in am - Secondary to decreased PO intake. - Telemetry to continue 5. Constipation: BM after Fleets on 05/12/18 - No BM in 10days - No obstruction or free air on Xray, confirmed constipaiton - Intense bowel regimen ordered including fleets enema today and daily senna S and lactulose 6. Dehydration secondary to decreased PO intake: - IV Fluids - Topical Moisturizer - Re-mediation 7. Moderate protein Calorie Malnutrition secondary to decreased PO intake, Failure to thrive - Marinol 10mg po BID - Megace 800mg daily - Dieticien Consultation - Protein Shakes TID Plan: - Supportive care, Daily Labs, Physical and occupational therapy, close mental status monitoring - Stern Cultures awaiting - reviewed MRI brain, no metastatic process noted - Intense bowel Regimen - Replacement of electrolytes, daily monitoring - Discussion with family related to overall goals and code status. No decisions at this time, palliative care does follow at home Physician Attestation: I have assessed and completed the full History and Physical of this patient and agree with above dictation by Alayna Sapp NP Dictatted as a scribe.
[2018-05-13] MEDS: DRONABINOL 2.5 MG CAP PO SCH ×2 (11:06→18:29)
[2018-05-13] MEDS: PANTOPRAZOLE 40 MG TABLET PO SCH ×2 (11:07→18:29)
[2018-05-13] MEDS: ENOXAPARIN 40 MG/0.4 ML SYRINGE SQ SCH (11:07)
[2018-05-13] MEDS: LACTULOSE 20 GM/30 ML CUP PO SCH ×4 (11:08→20:55)
[2018-05-13] MEDS: POTAS-SOD-PHOS 278-164-250 MG 1 EACH PACKET PO SCH ×3 (11:13→20:54)
[2018-05-13] MEDS: MEGESTROL 400 MG/10 ML CUP PO SCH (11:13)
[2018-05-13 11:42] LABS: Band Neutrophils % 1 %; Eosinophils # (M) 0.09 k/uL (0-0.7); Lymphocytes # (M) 1.27 k/uL (1.0-4.8); Metamyelocytes # (M) 0.18 k/uL (0); Metamyelocytes % 2 %; Monocytes # (M) 0.82 k/uL (0-1.0); Myelocytes # (M) 0.36 k/uL (0); Myelocytes % 4 %; Neutrophils % (M) 70 %; Nucleated Red Blood Cells 0 /100 WBC (0-0); Total Cells Counted 200
[2018-05-13] MEDS: 0.9% NACL WITH KCL 20 MEQ/L 1,000 ML IV SCH ×2 (15:24→20:55)
--- NOTE | 2018-05-13 17:20 | P.CONS ---
History of Present Illness - Reason for Consult Consult date: 05/13/18 Medical management Requesting physician: Chet Pope - Chief Complaint Weakness debility dehydration - History of Present Illness Carrie is a pleasant 62-year-old female well-known to the practice who presented with recent diagnosis of adenocarcinoma consistent with pancreaticobiliary origin. She originally was diagnosed from him know biopsy after presenting with obstructive painless jaundice ERCP was completed and multiple stents and PTCA were placed patient was admitted for cervical. Dehydration secondary to failure to thrive abdominal chest x-rays were ordered and pending Review of Systems Constitutional: Reports anorexia, Reports poor appetite Ears, nose, mouth and throat: Reports as per HPI Cardiovascular: Reports as per HPI Respiratory: Reports as per HPI Gastrointestinal: Reports abdominal pain, Reports nausea Genitourinary: Reports as per HPI Menstruation: Reports as per HPI Musculoskeletal: Reports as per HPI Integumentary: Reports as per HPI Neurological: Reports as per HPI Past Medical History Past Medical History: Cancer, GERD/Reflux Additional Past Medical History / Comment(s): CA BILE DUCT 02/05/18, HAS 2 DRAIN TUBES. WGT LOSS 50# SINCE 01/2018. History of Any Multi-Drug Resistant Organisms: None Reported Past Surgical History: Orthopedic Surgery, Tubal Ligation Additional Past Surgical History / Comment(s): RT KNEE SCOPE. CATARACTS. Biliary duct STENTS X2, DRAIN TUBES X3 PLACED - THRU HFH. right chest port Past Anesthesia/Blood Transfusion Reactions: Motion Sickness, Postoperative Nausea & Vomiting (PONV) Past Psychological History: Depression Additional Psychological History / Comment(s): SOME R/T HEALTH Smoking Status: Never smoker Past Alcohol Use History: None Reported Past Drug Use History: None Reported - Past Family History Mother Family Medical History: Myocardial Infarction ([place]) Father Family Medical History: COPD Medications and Allergies Home Medications Medication Instructions Recorded Confirmed Type Dronabinol [Marinol] 10 mg PO HS 03/29/18 05/12/18 History diphenhydrAMINE [Benadryl] 25 mg PO Q6HR PRN 03/29/18 05/12/18 History fentaNYL 75MCG/HR PATCH [Duragesic 75 mcg TRANSDERM Q72H 04/09/18 05/12/18 History 75MCG/HR] oxyCODONE HCL 10 mg PO Q3H PRN 04/09/18 05/12/18 History Dexamethasone [Decadron] 4 mg PO DIRECTED 05/12/18 05/12/18 History LORazepam [Ativan] 0.5 mg PO Q6HR 05/12/18 05/12/18 History Lactulose 20 gram PO DAILY 05/12/18 05/12/18 History Na Phos,M-B/Na Phos,Di-Ba [Fleet 133 ml RECTAL DAILY PRN 05/12/18 05/12/18 History Adult] Nystatin 100,000 Unit/ml Susp 500,000 unit PO DIRECTED 05/12/18 05/12/18 History [Mycostatin Oral Susp] Omeprazole 20 mg PO BID 05/12/18 05/12/18 History Prochlorperazine Suppository 25 mg RECTAL DAILY PRN 05/12/18 05/12/18 History [Compazine] Prochlorperazine [Compazine] 10 mg PO Q6HR PRN 05/12/18 05/12/18 History Sennosides/Docusate Sodium [Candace 2 tab PO HS 05/12/18 05/12/18 History Colace] oxyCODONE HCL [Roxicodone] 5 mg PO Q6H PRN 05/12/18 05/12/18 History Allergies Allergy/AdvReac Type Severity Reaction Status Date / Time codeine Allergy Nausea & Verified 05/12/18 16:53 Vomiting & Diarrhea Physical Exam Osteopathic Statement: *. No significant issues noted on an osteopathic structural exam other than those noted in the History and Physical/Consult. Vitals: Vital Signs Temp Pulse Pulse Resp BP Pulse Ox 05/13/18 16:53 98.2 F 98 17 125/67 97 05/13/18 12:41 98.9 F 107 H 18 138/73 97 05/13/18 09:00 98.7 F 86 17 145/66 98 05/13/18 05:00 99.0 F 101 H 16 142/65 98 05/13/18 01:00 98.4 F 100 16 102/67 100 05/12/18 21:00 97.7 F 89 16 140/65 95 Intake and Output 05/13/18 05/13/18 05/13/18 06:59 14:59 22:59 Intake Total 1190 1000 Output Total 550 100 100 Balance 640 900 -100 Intake: Intake, IV Titration 600 1000 Amount Potassium Chloride 20 meq 200 In Water For Injection 1 100ml.bag @ 50 mls/hr IVPB Q2HR JONI Rx#: [id number] Potassium Chloride 20 meq 200 In Water For Injection 1 100ml.bag @ 50 mls/hr IVPB Q4H JOIN Rx#: [id number] Sodium Chloride 0.9% 1, 400 800 000 ml @ 100 mls/hr IV . Q10H JONI Rx#:[id number] Oral 590 Output: Drainage 150 100 100 right bilary drain 150 100 100 Urine 400 Other: Voiding Method Indwelling Catheter Indwelling Catheter # Voids 350 Weight 60 kg General: [Patient awake, alert and oriented times 3. Patient in no acute distress.] Oral thrush HEENT: [PERRL. EOMI. No pharyngeal erythema or exudate.] Neck: [No adenopathy.] Cardiac: [Heart irregular tachycardic Lungs: Breath sounds diminished bilaterally Abdomen: [Hypoactive bowel sounds, Karrie tube draining Extremes: [No edema no cyanosis no claudication normal pulses] : [] Musculoskeletal: [No joint erythema, edema or tenderness.] Skin: [No rash.] Neurologic: [No lateralizing deficits. CN II - XII grossly intact.] Lymphatic: [No adenopathy.] Results CBC & Chem 7: 05/13/18 07:58 05/13/18 07:58 Labs: Abnormal Lab Results - Last 24 Hours (Table) 05/12/18 05/12/18 05/12/18 Range/Units 16:15 16:53 16:53 RBC (3.80-5.40) m/uL Hgb (11.4-16.0) gm/dL Hct (34.0-46.0) % Metamyelocytes # (Man) (0) k/uL Myelocytes # (Manual) (0) k/uL PT 14.4 H (9.0-12.0) sec INR 1.4 H (<1.2) Potassium 2.5 L* (3.5-5.1) mmol/L Carbon Dioxide 31 H (22-30) mmol/L Creatinine 0.45 L (0.52-1.04) mg/dL Glucose 118 H (74-99) mg/dL Calcium 8.1 L (8.4-10.2) mg/dL Phosphorus 2.3 L (2.5-4.5) mg/dL Magnesium (1.6-2.3) mg/dL TIBC 196 L (228-460) ug/dL Ferritin 2113.3 H (10.0-291.0) ng/mL Total Bilirubin 4.8 H (0.2-1.3) mg/dL AST 51 H (14-36) U/L Alkaline Phosphatase 453 H (38-126) U/L Lactate Dehydrogenase (313-618) U/L Total Protein 5.5 L (6.3-8.2) g/dL Albumin 2.8 L (3.5-5.0) g/dL Vitamin B12 1028.0 H (200.0-944.0) pg/mL Urine Appearance (Clear) Urine Protein (Negative) Urine Ketones (Negative) Urine Bilirubin (Negative) Ur Leukocyte Esterase (Negative) Urine WBC (0-5) /hpf Amorphous Sediment (None) /hpf Hyaline Casts (0-2) /lpf Urine Mucus (None) /hpf 05/12/18 05/12/18 05/13/18 Range/Units 16:53 18:30 07:58 RBC 3.61 L (3.80-5.40) m/uL Hgb 10.0 L D (11.4-16.0) gm/dL Hct 29.8 L (34.0-46.0) % Metamyelocytes # (Man) 0.18 H (0) k/uL Myelocytes # (Manual) 0.36 H (0) k/uL PT (9.0-12.0) sec INR (<1.2) Potassium (3.5-5.1) mmol/L Carbon Dioxide (22-30) mmol/L Creatinine (0.52-1.04) mg/dL Glucose (74-99) mg/dL Calcium (8.4-10.2) mg/dL Phosphorus (2.5-4.5) mg/dL Magnesium (1.6-2.3) mg/dL TIBC (228-460) ug/dL Ferritin (10.0-291.0) ng/mL Total Bilirubin (0.2-1.3) mg/dL AST (14-36) U/L Alkaline Phosphatase (38-126) U/L Lactate Dehydrogenase 944 H (313-618) U/L Total Protein (6.3-8.2) g/dL Albumin (3.5-5.0) g/dL Vitamin B12 (200.0-944.0) pg/mL Urine Appearance Cloudy H (Clear) Urine Protein 1+ H (Negative) Urine Ketones Trace H (Negative) Urine Bilirubin 2+ H (Negative) Ur Leukocyte Esterase Small H (Negative) Urine WBC 10 H (0-5) /hpf Amorphous Sediment Occasional H (None) /hpf Hyaline Casts 9 H (0-2) /lpf Urine Mucus Many H (None) /hpf 05/13/18 Range/Units 07:58 RBC (3.80-5.40) m/uL Hgb (11.4-16.0) gm/dL Hct (34.0-46.0) % Metamyelocytes # (Man) (0) k/uL Myelocytes # (Manual) (0) k/uL PT (9.0-12.0) sec INR (<1.2) Potassium 3.0 L (3.5-5.1) mmol/L Carbon Dioxide 32 H (22-30) mmol/L Creatinine 0.45 L (0.52-1.04) mg/dL Glucose 109 H (74-99) mg/dL Calcium 7.3 L (8.4-10.2) mg/dL Phosphorus (2.5-4.5) mg/dL Magnesium 1.4 L (1.6-2.3) mg/dL TIBC (228-460) ug/dL Ferritin (10.0-291.0) ng/mL Total Bilirubin 4.1 H (0.2-1.3) mg/dL AST 46 H (14-36) U/L Alkaline Phosphatase 353 H (38-126) U/L Lactate Dehydrogenase (313-618) U/L Total Protein 4.8 L (6.3-8.2) g/dL Albumin 2.4 L (3.5-5.0) g/dL Vitamin B12 (200.0-944.0) pg/mL Urine Appearance (Clear) Urine Protein (Negative) Urine Ketones (Negative) Urine Bilirubin (Negative) Ur Leukocyte Esterase (Negative) Urine WBC (0-5) /hpf Amorphous Sediment (None) /hpf Hyaline Casts (0-2) /lpf Urine Mucus (None) /hpf Microbiology - Last 24 Hours (Table) 05/12/18 18:30 Urine Culture - Preliminary Urine,Catheterized Assessment and Plan (1) Dehydration Current Visit: Yes Status: Acute Code(s): E86.0 - DEHYDRATION SNOMED Code( s): 55528908 (2) Hepatic encephalopathy Current Visit: Yes Status: Acute Code(s): K72.90 - HEPATIC FAILURE, UNSPECIFIED WITHOUT COMA SNOMED Code(s): 43296871 (3) Status post chemotherapy Current Visit: Yes Status: Acute Code(s): Z92.21 - PERSONAL HISTORY OF ANTINEOPLASTIC CHEMOTHERAPY SNOMED Code(s): 218309849 (4) Weakness Current Visit: Yes Status: Acute Code(s): R53.1 - WEAKNESS SNOMED Code(s) : 38150443 (5) Cholangiocarcinoma Current Visit: No Status: Acute Code(s): C22.1 - INTRAHEPATIC BILE DUCT CARCINOMA SNOMED Code(s): 788215772 Plan: Supportive care daily labs physical/occupational therapy Scales cultures Tenths bowel regimen Fluid resuscitation Discuss long-term goals palliative care with family Time with Patient: Greater than 30
[2018-05-13] MEDS: SENNOSIDES-DOCUSATE SODIUM 1 EACH TAB PO SCH (20:54)
[2018-05-14] MEDS: CLOTRIMAZOLE TROCHE 10 MG TROCHE PO SCH ×5 (00:35→22:25)
[2018-05-14] MEDS: 0.9% NACL WITH KCL 20 MEQ/L 1,000 ML IV SCH ×2 (00:36→17:35)
[2018-05-14] MEDS: LACTULOSE 20 GM/30 ML CUP PO SCH ×3 (08:05→22:25)
[2018-05-14] MEDS: DRONABINOL 2.5 MG CAP PO SCH ×2 (08:05→17:35)
[2018-05-14] MEDS: PANTOPRAZOLE 40 MG TABLET PO SCH ×2 (08:05→17:35)
[2018-05-14] MEDS: ENOXAPARIN 40 MG/0.4 ML SYRINGE SQ SCH (08:05)
[2018-05-14] MEDS: POTAS-SOD-PHOS 278-164-250 MG 1 EACH PACKET PO SCH ×3 (08:06→22:25)
[2018-05-14] MEDS: MEGESTROL 400 MG/10 ML CUP PO SCH (08:06)
[2018-05-14 08:37] LABS: HCT 26.1 % (34.0-46.0); HGB 8.8 gm/dL (11.4-16.0); MCH 28.1 pg (25.0-35.0); MCHC 33.9 g/dL (31.0-37.0); Mean Platelet Volume 6.7; Platelet Count 281 k/uL (150-450); RBC 3.15 m/uL (3.80-5.40); RDW 14.6 % (11.5-15.5); WBC 9.6 k/uL (3.8-10.6)
[2018-05-14 10:41] LABS: Band Neutrophils % 5 %; Lymphocytes # (M) 1.54 k/uL (1.0-4.8); Metamyelocytes # (M) 0.48 k/uL (0); Metamyelocytes % 5 %; Monocytes # (M) 0.58 k/uL (0-1.0); Myelocytes # (M) 0.29 k/uL (0); Myelocytes % 3 %; Neutrophils % (M) 65 %; Nucleated Red Blood Cells 0 /100 WBC (0-0); Total Cells Counted 200
[2018-05-14 11:33] LABS: ALT 32 U/L (9-52); AST 36 U/L (14-36); Albumin 2.2 g/dL (3.5-5.0); Alkaline Phosphatase 296 U/L (38-126); Anion Gap 0 mmol/L; Blood Urea Nitrogen 8 mg/dL (7-17); Calcium 7.5 mg/dL (8.4-10.2); Carbon Dioxide 31 mmol/L (22-30); Chloride 110 mmol/L (98-107); Glucose 103 mg/dL (74-99); Magnesium 1.5 mg/dL (1.6-2.3); Phosphorus 2.1 mg/dL (2.5-4.5); Potassium 4.1 mmol/L (3.5-5.1); Sodium 141 mmol/L (137-145); Total Bilirubin 3.4 mg/dL (0.2-1.3); Total Protein 4.7 g/dL (6.3-8.2)
--- NOTE | 2018-05-14 12:33 | P.PN ---
Subjective Progress Note Date: 05/14/18 Principal diagnosis: Hepatic encephalopathy, dehydration, FTT at bedside this am, patient is easily awoken to stimuli and talks with clear voice tone, although does not consistently answer appropriately and pleasantly confused. New today her left lower leg and left foot with foot drop and inability to move, moves right leg. Left leg she is unable to tell me when I am touching her. . Objective - Vital Signs Vital signs: Vital Signs Temp 98.3 F 05/14/18 07:57 Pulse 89 05/14/18 07:57 Resp 16 05/14/18 07:57 BP 127/76 05/14/18 07:57 Pulse Ox 98 05/14/18 07:57 Intake & Output 05/13/18 05/14/18 05/14/18 18:59 06:59 18:59 Intake Total 1000 1020 Output Total 200 425 Balance 800 595 Weight 60 kg Intake: Intake, IV Titration 1000 900 Amount 0.9% NaCl with KCl 20 Meq 900 /l 1,000 ml @ 100 mls/hr IV .Q10H JONI Rx#: [id number] Potassium Chloride 20 meq 200 In Water For Injection 1 100ml.bag @ 50 mls/hr IVPB Q2HR JONI Rx#: [id number] Sodium Chloride 0.9% 1, 800 000 ml @ 100 mls/hr IV . Q10H JONI Rx#:[id number] Oral 120 Output: Drainage 200 175 right bilary drain 200 175 Urine 250 Other: Voiding Method Indwelling Catheter Indwelling Catheter Indwelling Catheter # Voids 350 - Exam en: Alert and Awake, confusion and innapropriate answer Mouth/OP with Thrush, Dry mucous membranes Neck Suppole, no lymphadenopathy Lungs are diminished bibasilar, No increased effort Heart is irreg and tachy abdomen hypoactive Bowel sounds, bili tube is draining. Extremities no edema, BLE Decreased strength and contracted Neurological exam unbale to follow to perform, focal defects noted. Left foot drop and LLE inability to move - Labs CBC & Chem 7: 05/14/18 07:41 05/14/18 07:41 Labs: Abnormal Lab Results - Last 24 Hours (Table) 05/14/18 05/14/18 Range/Units 07:41 07:41 RBC 3.15 L (3.80-5.40) m/uL Hgb 8.8 L (11.4-16.0) gm/dL Hct 26.1 L (34.0-46.0) % Metamyelocytes # (Man) 0.48 H (0) k/uL Myelocytes # (Manual) 0.29 H (0) k/uL Chloride 110 H (98-107) mmol/L Carbon Dioxide 31 H (22-30) mmol/L Creatinine 0.42 L (0.52-1.04) mg/dL Glucose 103 H (74-99) mg/dL Calcium 7.5 L (8.4-10.2) mg/dL Phosphorus 2.1 L (2.5-4.5) mg/dL Magnesium 1.5 L (1.6-2.3) mg/dL Total Bilirubin 3.4 H (0.2-1.3) mg/dL Alkaline Phosphatase 296 H (38-126) U/L Total Protein 4.7 L (6.3-8.2) g/dL Albumin 2.2 L (3.5-5.0) g/dL Microbiology - Last 24 Hours (Table) 05/12/18 18:30 Urine Culture - Final Urine,Catheterized 05/12/18 19:20 Blood Culture - Preliminary Blood No Growth after 24 hours 05/12/18 16:53 Blood Culture - Preliminary Blood No Growth after 24 hours Assessment and Plan Plan: Assessment and Recommendations: 1. Metastatic Cholangiocarcinoma: - Status Post cycle one of Cisplatin and Gemzar (D1,8q21D) on 04/30/18 - Tolerated well - Overall prognosis is poor, discussed code status with today, no decision made at this point. - Chemotherapy to remain on hold until improved overall performance status. 2. Debility and acute on Chronic Critical Illness Myopathy: - Decreased movement, activity at home despite PT/OT in the home - Worsening and unable to ambulate - PT/OT ordered 3. Mental Status Changes and Increased Lethargy and confusion: - Neuro Checks q4 x24 hours - Likely multifactoral with component of hepatic encephalopathy, failure to thrice, and metastatic Cancer - Check MRI Brain to evaluate for brain metastasis - Scales Culture, Blood Cultures (port and peripheral, UA/Culture, and Chest Xray (no acute etiology on xray) - Scales Cultures are negative to date 05/14/18 - Lactulose TID 4. Hypokalemia, Hypophosphatemia, Hypomagnesium - Supp ordered - Recheck in am - Secondary to decreased PO intake. - Telemetry to continue 5. Constipation: BM after Fleets on 05/12/18 - No obstruction or free air on Xray, confirmed constipaiton - Intense bowel regimen ordered including fleets enema today and daily senna S and lactulose 6. Dehydration secondary to decreased PO intake: - IV Fluids - Topical Moisturizer - Re-mediation 7. Moderate protein Calorie Malnutrition secondary to decreased PO intake, Failure to thrive - Marinol 10mg po BID - Megace 800mg daily - Dieticien Consultation - Protein Shakes TID 8. Unilateral LLE weakness and decreased sensation with Foot Drop: - at this time has not been able to make descision related to goal and plan for care therefore will move forward with Lspine MRI to assess for compression cord from metastatic disease 9. Hepatic Encephalopathy: - Continue on Lactulose ATC, still confused - Improvement in overall bili Plan: - Long discussion with regarding overall prognosis and options - Hospice care in the home is appropriate, currently in her weaken state unable to provide chemotherapy - Continue to monitor electrolytes - Continue supportive care. - He is awaiting discussion with her son (in [place]) to make final descision, in event he chooses not to move forward with hospice in home of Hospice house will plan for Palliative care to continue in ECF as PT/OT evaluated and she was unable to work with them and rec for 24 hour care were made. Time with Patient: Greater than 30
--- NOTE | 2018-05-14 16:25 | MR ---
EXAMINATION TYPE: MR lspine/sacrum wo/w con DATE OF EXAM: 05/14/2018 COMPARISON: CT abdomen and pelvis January 27, 2018 HISTORY: Weakness, lt drop foot. Suspect cord involvement. History of biliary duct neoplasm. TECHNIQUE: Multiplanar, multisequence images of the lumbar spine and sacrum are performed without and with IV co ntrast, utilizing 6 mL intravenous Gadavist FINDINGS: L-SPINE: Sagittal images of the lumbar spine show vertebral body heights and alignment to remain satisfactory. Multilevel disc desiccation is present. There is mild disc space narrowing L3-L4 level. Small lawn care technician ior disc herniations are present at this level and L4-L5 level on sagittal images. The conus medullar is is normal in position and signal ending at T12-L1 disc space level. The bone marrow signal intens ity is within normal limits. No suspicious enhancement is seen. Axial images the inferior T12 level shows single image of increased central signal conus medullaris o n axial image 31 which does not reproduce on sagittal images and does not show abnormal signal immedi ately above and below this level. There may be subtle T2 hyperintense focus or central dot on axial i mage 29 T12-L1 disc space level this may correlate to sagittal image 8. No suspicious enhancement is present. Axial images at T12-L1 level mild facet degenerative changes bilaterally otherwise are felt within no rmal limits. Similar finding is noted at L1-L2 level effacing posterior lateral thecal sac on axial i mage 25. Axial images at L2-L3 level show mild facet degenerative changes with endplate hypertrophy effacing p osterior lateral thecal sac and axial image 19. Bilateral neural foramina are patent. Axial images at L3-L4 level levels show central disc protrusion mildly facing anterior thecal sac wit h mild facet degenerative changes limits flavum hypertrophy effacing posterior lateral thecal sac. Bi lateral neural foramina are patent. Axial images at L4-L5 level show moderate facet degenerative changes. There is broad-based posterior disc protrusion effacing the anterior thecal sac. Bilateral neural foramina are patent. Axial images at L5-S1 level show [id number] facet degenerative changes bilaterally. Spinal elizabeth l is preserved. Bilateral neural foramina are patent. There are few round subcentimeter T2 hyperintense lesions without enhancement for reference anterior right kidney axial image 27 that favor simple thin-walled cysts. On axial images there is suggestion or better visualization of suspected enhancement of multiple lumb osacral nerve roots bilaterally without significant nodularity or thickening. IMPRESSION: Cannot rule out mild abnormal signal or edema at level of conus medullary. No suspicious enhancement is seen at this level. Some multilevel degenerative changes most prominent at L3-L4 and L4-L5 level as detailed above. SACRUM: Sacral alar are intact. Sacroiliac joints are symmetric and felt within normal limits. No suspicious edema is seen. Similar to lumbar spine there is better visualization or diffuse enhancement of multip le bilateral sacral nerves without suspicious nodularity or thickening. There is 5.1 x 4.0 cm oval well-defined cystic lesion without enhancement in the right adnexa or pelv is axial image [address] Cystic ovarian neoplasm cannot be excluded as this is abnormal finding in a postmenopausal female. Further workup is advised if has not been performed. Impression: Bilateral diffuse enhancing lumbosacral nerves without thickening or nodularity, nonspeci fic finding. Diffuse neuritis is in differential.
[2018-05-14] MEDS: SENNOSIDES-DOCUSATE SODIUM 1 EACH TAB PO SCH (22:25)
[2018-05-14] MEDS: DEXAMETHASONE 4 MG TAB PO SCH (22:25)
[2018-05-15] MEDS: CLOTRIMAZOLE TROCHE 10 MG TROCHE PO SCH ×5 (02:20→21:47)
[2018-05-15] MEDS: 0.9% NACL WITH KCL 20 MEQ/L 1,000 ML IV SCH ×3 (04:56→21:47)
[2018-05-15] MEDS: PANTOPRAZOLE 40 MG TABLET PO SCH ×2 (07:33→21:46)
[2018-05-15] MEDS: ENOXAPARIN 40 MG/0.4 ML SYRINGE SQ SCH (07:33)
[2018-05-15] MEDS: LACTULOSE 20 GM/30 ML CUP PO SCH ×3 (07:33→21:47)
[2018-05-15] MEDS: DRONABINOL 2.5 MG CAP PO SCH ×2 (07:33→21:46)
[2018-05-15] MEDS: MEGESTROL 400 MG/10 ML CUP PO SCH (07:34)
[2018-05-15] MEDS: DEXAMETHASONE 4 MG TAB PO SCH ×2 (07:35→21:46)
[2018-05-15] MEDS: POTAS-SOD-PHOS 278-164-250 MG 1 EACH PACKET PO SCH ×3 (07:35→21:47)
[2018-05-15 10:02] LABS: HCT 26.8 % (34.0-46.0); HGB 9.1 gm/dL (11.4-16.0); MCH 28.7 pg (25.0-35.0); MCHC 33.9 g/dL (31.0-37.0); MCV 84.8 fL (80.0-100.0); Mean Platelet Volume 7.6; Platelet Count 283 k/uL (150-450); RBC 3.16 m/uL (3.80-5.40); RDW 14.6 % (11.5-15.5); WBC 12.7 k/uL (3.8-10.6)
[2018-05-15 10:05] LABS: ALT 35 U/L (9-52); AST 34 U/L (14-36); Albumin 2.3 g/dL (3.5-5.0); Alkaline Phosphatase 290 U/L (38-126); Anion Gap 3 mmol/L; Blood Urea Nitrogen 6 mg/dL (7-17); Calcium 7.8 mg/dL (8.4-10.2); Carbon Dioxide 27 mmol/L (22-30); Chloride 108 mmol/L (98-107); Glucose 116 mg/dL (74-99); Magnesium 1.4 mg/dL (1.6-2.3); Phosphorus 2.9 mg/dL (2.5-4.5); Potassium 4.2 mmol/L (3.5-5.1); Sodium 138 mmol/L (137-145); Total Protein 4.8 g/dL (6.3-8.2)
[2018-05-15] MEDS: SENNOSIDES-DOCUSATE SODIUM 1 EACH TAB PO SCH (21:46)
--- NOTE | 2018-05-15 23:42 | P.PN ---
Subjective Progress Note Date: 05/15/18 (Seen this afternoon, late entry EMR) Principal diagnosis: Hepatic encephalopathy, dehydration, FTT at bedside as well as sister, she awakens to stimuli although still very confused. She will not eat or drink even with encouragement. Dr. Mortensen and myself seen patient this am, late entry for note secondary to EMR. We had long discussion with patients regarding her overall poor prognosis and goals of care. Plan has changed to comfort measures and discussion regarding Hospice and code status. He has agreed to DNR status and understands her rapidly declining status. Will continue supportive comfort measures at this time and plan for hospice care, inpatient maybe appropriate, for Thursday once her son is present and [place] of [place]. Objective - Vital Signs Vital signs: Vital Signs Temp 98.3 F 05/15/18 21:00 Pulse 76 05/15/18 21:00 Resp 16 05/15/18 21:00 BP 141/64 05/15/18 21:00 Pulse Ox 97 05/15/18 21:00 Intake & Output 05/15/18 05/15/18 05/16/18 06:59 18:59 06:59 Intake Total 1380 600 Output Total 550 1200 Balance 830 -1200 600 Intake: Intake, IV Titration 1100 500 Amount 0.9% NaCl with KCl 20 Meq 1100 500 /l 1,000 ml @ 100 mls/hr IV .Q10H JONI Rx#: [id number] Oral 280 100 Output: Drainage 200 200 right bilary drain 200 200 Urine 350 1000 Uretheral ([place]) 350 Other: Voiding Method Indwelling Catheter Indwelling Catheter - Exam en: Alert and Awake, confusion and innapropriate answer Mouth/OP with Thrush, Dry mucous membranes Neck Suppole, no lymphadenopathy Lungs are diminished bibasilar, No increased effort Heart is irreg and tachy abdomen hypoactive Bowel sounds, bili tube is draining. Extremities no edema, BLE Decreased strength and contracted Neurological exam unbale to follow to perform, focal defects noted. Left foot drop and LLE inability to move - Labs CBC & Chem 7: 05/16/18 09:36 05/15/18 09:30 Labs: Abnormal Lab Results - Last 24 Hours (Table) 05/15/18 05/15/18 Range/Units 09:30 09:30 WBC 12.7 H (3.8-10.6) k/uL RBC 3.16 L (3.80-5.40) m/uL Hgb 9.1 L (11.4-16.0) gm/dL Hct 26.8 L (34.0-46.0) % Chloride 108 H (98-107) mmol/L BUN 6 L (7-17) mg/dL Creatinine 0.40 L (0.52-1.04) mg/dL Glucose 116 H (74-99) mg/dL Calcium 7.8 L (8.4-10.2) mg/dL Magnesium 1.4 L (1.6-2.3) mg/dL Total Bilirubin 3.0 H (0.2-1.3) mg/dL Alkaline Phosphatase 290 H (38-126) U/L Total Protein 4.8 L (6.3-8.2) g/dL Albumin 2.3 L (3.5-5.0) g/dL Microbiology - Last 24 Hours (Table) 05/12/18 19:20 Blood Culture - Preliminary Blood No Growth after 72 hours 05/12/18 16:53 Blood Culture - Preliminary Blood No Growth after 72 hours Assessment and Plan Plan: Assessment and Recommendations: 1. Metastatic Cholangiocarcinoma: - Status Post cycle one of Cisplatin and Gemzar (D1,8q21D) on 04/30/18 - Tolerated well - Overall prognosis is poor, discussed code status with today, no decision made at this point. - Chemotherapy to remain on hold until improved overall performance status. 2. Debility and acute on Chronic Critical Illness Myopathy: - Decreased movement, activity at home despite PT/OT in the home - Worsening and unable to ambulate - PT/OT ordered 3. Mental Status Changes and Increased Lethargy and confusion: - Neuro Checks q4 x24 hours - Likely multifactoral with component of hepatic encephalopathy, failure to thrice, and metastatic Cancer - Check MRI Brain to evaluate for brain metastasis - Scales Culture, Blood Cultures (port and peripheral, UA/Culture, and Chest Xray (no acute etiology on xray) - Scales Cultures are negative to date 05/14/18 - Lactulose TID 4. Hypokalemia, Hypophosphatemia, Hypomagnesium - Supp ordered - Recheck in am - Secondary to decreased PO intake. - Telemetry to continue 5. Constipation: BM after Fleets on 05/12/18 - No obstruction or free air on Xray, confirmed constipaiton - Intense bowel regimen ordered including fleets enema today and daily senna S and lactulose 6. Dehydration secondary to decreased PO intake: - IV Fluids - Topical Moisturizer - Re-mediation 7. Moderate protein Calorie Malnutrition secondary to decreased PO intake, Failure to thrive - Marinol 10mg po BID - Megace 800mg daily - Dieticien Consultation - Protein Shakes TID 8. Unilateral LLE weakness and decreased sensation with Foot Drop: - at this time has not been able to make descision related to goal and plan for care therefore will move forward with Lspine MRI to assess for compression cord from metastatic disease 9. Hepatic Encephalopathy: - Continue on Lactulose ATC, still confused - Improvement in overall bili Plan: - Long discussion with regarding overall prognosis and options - Hospice care in the home is appropriate, currently in her weaken state unable to provide chemotherapy - Continue to monitor electrolytes - Continue supportive care. - He is awaiting discussion with her son (in [place]) to make final descision, in event he chooses not to move forward with hospice in home of Hospice house will plan for Palliative care to continue in ECF as PT/OT evaluated and she was unable to work with them and rec for 24 hour care were made. - Dr Mortensen had long discussion and plan to have hospice meeting on Thursday and go home with hospice. Physician Attest: I have completed the full H and P and Agree above dictated as scribe.
[2018-05-16] MEDS: CLOTRIMAZOLE TROCHE 10 MG TROCHE PO SCH ×6 (00:22→23:22)
[2018-05-16] MEDS: MEGESTROL 400 MG/10 ML CUP PO SCH (07:03)
[2018-05-16] MEDS: ENOXAPARIN 40 MG/0.4 ML SYRINGE SQ SCH (07:03)
[2018-05-16] MEDS: POTAS-SOD-PHOS 278-164-250 MG 1 EACH PACKET PO SCH ×3 (07:03→20:19)
[2018-05-16] MEDS: LACTULOSE 20 GM/30 ML CUP PO SCH ×3 (07:03→20:19)
[2018-05-16] MEDS: DRONABINOL 2.5 MG CAP PO SCH ×2 (07:03→16:49)
[2018-05-16] MEDS: PANTOPRAZOLE 40 MG TABLET PO SCH ×2 (07:31→16:49)
[2018-05-16] MEDS: DEXAMETHASONE 4 MG TAB PO SCH ×2 (07:32→20:18)
[2018-05-16] MEDS: 0.9% NACL WITH KCL 20 MEQ/L 1,000 ML IV SCH ×2 (07:33→23:22)
[2018-05-16] MEDS: MINERAL OIL-WHITE PETROLATUM 120 GM JAR TOPICAL PRN ×2 (07:34→20:21)
[2018-05-16 07:57] LABS: Band Neutrophils % 3 %; Eosinophils # (M) 0.13 k/uL (0-0.7); Lymphocytes # (M) 1.52 k/uL (1.0-4.8); Metamyelocytes # (M) 0.64 k/uL (0); Metamyelocytes % 5 %; Monocytes # (M) 0.76 k/uL (0-1.0); Myelocytes # (M) 1.14 k/uL (0); Myelocytes % 9 %; Neutrophils % (M) 64 %; Nucleated Red Blood Cells 0 /100 WBC (0-0); Total Cells Counted 100
[2018-05-16 07:58] LABS: Toxic Granulation Present
[2018-05-16 10:59] LABS: HCT 31.1 % (34.0-46.0); HGB 10.5 gm/dL (11.4-16.0); MCH 27.8 pg (25.0-35.0); MCHC 33.9 g/dL (31.0-37.0); MCV 82.2 fL (80.0-100.0); Mean Platelet Volume 6.9; Platelet Count 279 k/uL (150-450); RBC 3.79 m/uL (3.80-5.40); RDW 14.8 % (11.5-15.5); WBC 18.7 k/uL (3.8-10.6)
--- NOTE | 2018-05-16 11:48 | P.PN ---
Subjective Progress Note Date: 05/15/18 Principal diagnosis: History of pancreatic o biliary adenocarcinoma Patient is sleeping but arousable, sister is at bedside is currently not here, patient awakens to verbal stimuli still confused, I noticed from heme uncus note that discussed at length regarding patient's overall prognosis of care and at this time the patient has been changed to comfort measures with making patient no code and consenting to hospice care which in fact is quite appropriate, this will all probably come about on Thursday once patient's son is present and back from outside the [place]. Objective - Vital Signs Vital signs: Vital Signs Temp 97.6 F 05/16/18 05:00 Pulse 76 05/16/18 08:25 Resp 18 05/16/18 08:25 BP 126/59 05/16/18 05:00 Pulse Ox 96 05/16/18 05:00 Intake & Output 05/15/18 05/16/18 05/16/18 18:59 06:59 18:59 Intake Total 1400 Output Total 1200 1900 Balance -1200 -500 Intake: Intake, IV Titration 1300 Amount 0.9% NaCl with KCl 20 Meq 1300 /l 1,000 ml @ 100 mls/hr IV .Q10H [facility] Rx#: [id number] Oral 100 Output: Drainage 200 200 right bilary drain 200 200 Urine 1000 1700 Uretheral ([place]) 1700 Other: Voiding Method Indwelling Catheter Indwelling Catheter Indwelling Catheter # Voids 1 - Exam General: [Patient awake, alert and oriented times 3. Patient in no acute distress.] Patient appears to have decent appetite a large breakfast HEENT: [PERRL. EOMI. No pharyngeal erythema or exudate.] Neck: [No adenopathy.] Cardiac: [Heart regular in rate and rhythm. No S3. No S4. No clicks, rubs. No murmur.] Lungs: [Clear to auscultation bilaterally.] Abdomen: Abdominal sounds present but diminished, Karrie tube is draining Extremes: [No edema no cyanosis no claudication normal pulses] : [] Musculoskeletal: [No joint erythema, edema or tenderness.] Skin: [No rash.] Neurologic: [No lateralizing deficits. CN II - XII grossly intact.] Lymphatic: [No adenopathy.] - Labs CBC & Chem 7: 05/16/18 09:36 05/15/18 09:30 Labs: Abnormal Lab Results - Last 24 Hours (Table) 05/15/18 05/15/18 05/16/18 Range/Units 09:30 09:30 09:36 WBC 12.7 H 18.7 H (3.8-10.6) k/uL RBC 3.16 L 3.79 L (3.80-5.40) m/uL Hgb 9.1 L 10.5 L (11.4-16.0) gm/dL Hct 26.8 L 31.1 L (34.0-46.0) % Neutrophils # (Manual) 8.50 H (1.3-7.7) k/uL Metamyelocytes # (Man) 0.64 H (0) k/uL Myelocytes # (Manual) 1.14 H (0) k/uL Chloride 108 H (98-107) mmol/L BUN 6 L (7-17) mg/dL Creatinine 0.40 L (0.52-1.04) mg/dL Glucose 116 H (74-99) mg/dL Calcium 7.8 L (8.4-10.2) mg/dL Magnesium 1.4 L (1.6-2.3) mg/dL Total Bilirubin 3.0 H (0.2-1.3) mg/dL Alkaline Phosphatase 290 H (38-126) U/L Total Protein 4.8 L (6.3-8.2) g/dL Albumin 2.3 L (3.5-5.0) g/dL Microbiology - Last 24 Hours (Table) 05/12/18 19:20 Blood Culture - Preliminary Blood No Growth after 72 hours 05/12/18 16:53 Blood Culture - Preliminary Blood No Growth after 72 hours Assessment and Plan (1) Dehydration Current Visit: Yes Status: Acute Code(s): E86.0 - DEHYDRATION SNOMED Code( s): 11916166 (2) Hepatic encephalopathy Current Visit: Yes Status: Acute Code(s): K72.90 - HEPATIC FAILURE, UNSPECIFIED WITHOUT COMA SNOMED Code(s): 59380854 (3) Status post chemotherapy Current Visit: Yes Status: Acute Code(s): Z92.21 - PERSONAL HISTORY OF ANTINEOPLASTIC CHEMOTHERAPY SNOMED Code(s): 174804264 (4) Weakness Current Visit: Yes Status: Acute Code(s): R53.1 - WEAKNESS SNOMED Code(s) : 96740694 (5) Cholangiocarcinoma Current Visit: No Status: Acute Code(s): C22.1 - INTRAHEPATIC BILE DUCT CARCINOMA SNOMED Code(s): 941284578 Plan: Supportive care Patient has agreed to DO NOT RESUSCITATE Agrees with palliative care Plan at this time is to move towards hospice once patient's son has returned from being out of town which is some time the person next week We will continue current care Time with Patient: Greater than 30
--- NOTE | 2018-05-16 11:49 | P.PN ---
Subjective Progress Note Date: 05/16/18 Principal diagnosis: History of pancreatic o biliary adenocarcinoma Patient is sleeping but arousable, sister is at bedside is currently not here, patient awakens to verbal stimuli still confused, I noticed from heme uncus note that discussed at length regarding patient's overall prognosis of care and at this time the patient has been changed to comfort measures with making patient no code and consenting to hospice care which in fact is quite appropriate, this will all probably come about on Thursday once patient's son is present and back from outside the [place]. Objective - Vital Signs Vital signs: Vital Signs Temp 97.6 F 05/16/18 05:00 Pulse 76 05/16/18 08:25 Resp 18 05/16/18 08:25 BP 126/59 05/16/18 05:00 Pulse Ox 96 05/16/18 05:00 Intake & Output 05/15/18 05/16/18 05/16/18 18:59 06:59 18:59 Intake Total 1400 Output Total 1200 1900 Balance -1200 -500 Intake: Intake, IV Titration 1300 Amount 0.9% NaCl with KCl 20 Meq 1300 /l 1,000 ml @ 100 mls/hr IV .Q10H [facility] Rx#: [id number] Oral 100 Output: Drainage 200 200 right bilary drain 200 200 Urine 1000 1700 Uretheral ([place]) 1700 Other: Voiding Method Indwelling Catheter Indwelling Catheter Indwelling Catheter # Voids 1 - Exam General: [Patient awake, alert and oriented times 3. Patient in no acute distress.] Patient appears to have decent appetite a large breakfast HEENT: [PERRL. EOMI. No pharyngeal erythema or exudate.] Neck: [No adenopathy.] Cardiac: [Heart regular in rate and rhythm. No S3. No S4. No clicks, rubs. No murmur.] Lungs: [Clear to auscultation bilaterally.] Abdomen: Abdominal sounds present but diminished, Karrie tube is draining Extremes: [No edema no cyanosis no claudication normal pulses] : [] Musculoskeletal: [No joint erythema, edema or tenderness.] Skin: [No rash.] Neurologic: [No lateralizing deficits. CN II - XII grossly intact.] Lymphatic: [No adenopathy.] - Labs CBC & Chem 7: 05/16/18 09:36 05/15/18 09:30 Labs: Abnormal Lab Results - Last 24 Hours (Table) 05/15/18 05/15/18 05/16/18 Range/Units 09:30 09:30 09:36 WBC 12.7 H 18.7 H (3.8-10.6) k/uL RBC 3.16 L 3.79 L (3.80-5.40) m/uL Hgb 9.1 L 10.5 L (11.4-16.0) gm/dL Hct 26.8 L 31.1 L (34.0-46.0) % Neutrophils # (Manual) 8.50 H (1.3-7.7) k/uL Metamyelocytes # (Man) 0.64 H (0) k/uL Myelocytes # (Manual) 1.14 H (0) k/uL Chloride 108 H (98-107) mmol/L BUN 6 L (7-17) mg/dL Creatinine 0.40 L (0.52-1.04) mg/dL Glucose 116 H (74-99) mg/dL Calcium 7.8 L (8.4-10.2) mg/dL Magnesium 1.4 L (1.6-2.3) mg/dL Total Bilirubin 3.0 H (0.2-1.3) mg/dL Alkaline Phosphatase 290 H (38-126) U/L Total Protein 4.8 L (6.3-8.2) g/dL Albumin 2.3 L (3.5-5.0) g/dL Microbiology - Last 24 Hours (Table) 05/12/18 19:20 Blood Culture - Preliminary Blood No Growth after 72 hours 05/12/18 16:53 Blood Culture - Preliminary Blood No Growth after 72 hours Assessment and Plan (1) Dehydration Current Visit: Yes Status: Acute Code(s): E86.0 - DEHYDRATION SNOMED Code( s): 70331847 (2) Hepatic encephalopathy Current Visit: Yes Status: Acute Code(s): K72.90 - HEPATIC FAILURE, UNSPECIFIED WITHOUT COMA SNOMED Code(s): 63026493 (3) Status post chemotherapy Current Visit: Yes Status: Acute Code(s): Z92.21 - PERSONAL HISTORY OF ANTINEOPLASTIC CHEMOTHERAPY SNOMED Code(s): 366283312 (4) Weakness Current Visit: Yes Status: Acute Code(s): R53.1 - WEAKNESS SNOMED Code(s) : 26165174 (5) Cholangiocarcinoma Current Visit: No Status: Acute Code(s): C22.1 - INTRAHEPATIC BILE DUCT CARCINOMA SNOMED Code(s): 882494708 Plan: Supportive care Patient has agreed to DO NOT RESUSCITATE Agrees with palliative care Plan at this time is to move towards hospice once patient's son has returned from being out of town which is some time the person next week We will continue current care Time with Patient: Less than 30
[2018-05-16 13:56] LABS: Band Neutrophils % 8 %; Basophils # (M) 0.19 k/uL (0-0.2); Lymphocytes # (M) 1.87 k/uL (1.0-4.8); Metamyelocytes # (M) 0.75 k/uL (0); Metamyelocytes % 4 %; Monocytes # (M) 0.94 k/uL (0-1.0); Myelocytes # (M) 1.68 k/uL (0); Myelocytes % 9 %; Neutrophils % (M) 65 %; Nucleated Red Blood Cells 0 /100 WBC (0-0); Total Cells Counted 200
[2018-05-16 13:57] LABS: Toxic Granulation Present
[2018-05-16 13:58] LABS: Anisocytosis (M) Present; Poikilocytosis (M) Present
[2018-05-16] MEDS: SENNOSIDES-DOCUSATE SODIUM 1 EACH TAB PO SCH (20:19)
[2018-05-17] MEDS: CLOTRIMAZOLE TROCHE 10 MG TROCHE PO SCH ×5 (06:30→23:27)
[2018-05-17] MEDS: 0.9% NACL WITH KCL 20 MEQ/L 1,000 ML IV SCH ×3 (06:30→23:28)
[2018-05-17] MEDS: PANTOPRAZOLE 40 MG TABLET PO SCH ×2 (08:04→17:27)
[2018-05-17] MEDS: DRONABINOL 2.5 MG CAP PO SCH ×2 (08:04→17:26)
[2018-05-17] MEDS: DEXAMETHASONE 4 MG TAB PO SCH ×2 (08:04→19:56)
[2018-05-17] MEDS: POTAS-SOD-PHOS 278-164-250 MG 1 EACH PACKET PO SCH ×3 (08:04→23:27)
[2018-05-17] MEDS: ENOXAPARIN 40 MG/0.4 ML SYRINGE SQ SCH (08:04)
[2018-05-17] MEDS: MEGESTROL 400 MG/10 ML CUP PO SCH (08:04)
[2018-05-17] MEDS: LACTULOSE 20 GM/30 ML CUP PO SCH ×3 (08:06→23:27)
[2018-05-17] MEDS ORDERED: ONDANSETRON 4 MG/2 ML VIAL IVP PRN (09:36)
[2018-05-17] MEDS ORDERED: MORPHINE CONC SOLN 10mg/0.5mL ORAL SYRG PO PRN (10:04)
--- NOTE | 2018-05-17 10:04 | P.PN ---
Progress Note - Text Progress Note Date: 05/17/18 Family meeting today. Discussed case with IM. Pt is not oriented and unable to make decisions, her responses to questions are not appropriate. Discussed diagnosis of metastatic pancreatic malignancy, summarized diagnosis, treatment and pt failure to thrive prior to diagnosis, as well as post 1 cycle of chemo. Intent of treatment is/was palliation of symptoms. Further chemotherapy would be more detrimental to pt condition and likely hasten . Recommendation is for hospice care. Facility would be the optimal placement due to pt need for 24 hour care. Want family to focus on being with pt vs having to focus on basic care. All questions answered to the best of my ability Discussed with Case management who will look into financial responsibility for family. If pt able to be discharged to facility today will complete discharge summary. >35 min spent with pt and family, >50% counseling and coordinating care
--- NOTE | 2018-05-17 10:11 | P.PN ---
Sandi Allen is a 62-year-old white female patient of my office. She has pancreatic/ biliary adenocarcinoma. She is admitted for failure to thrive, intractable nausea and vomiting, and confusion. She was admitted May 12. She is somnolent but arousable, she had one episode of emesis while I was at bedside. Her son, mother, and were at bedside today. I discussed with him briefly the plan for hospice. Her mentioned "I don't think she is ready for discharge it". I mentioned to him that she would be only going home to be comfortable as she is terminal and dying at this point. I discussed her case with Dr. Duncan, who is aware, he mentions that she was borderline for chemotherapy anyway, and did not tolerate it at all. She denies any pain today during my exam. Objective - Vital Signs Vital signs: Vital Signs Temp 98.4 F 05/17/18 04:00 Pulse 82 05/17/18 04:00 Resp 16 05/17/18 04:00 BP 127/70 05/17/18 04:00 Pulse Ox 98 05/17/18 04:00 Intake & Output 05/16/18 05/17/18 05/17/18 18:59 06:59 18:59 Intake Total 360 Output Total 1015 1205 Balance -1015 -845 Intake: Intake, IV Titration 200 Amount 0.9% NaCl with KCl 20 Meq 200 /l 1,000 ml @ 100 mls/hr IV .Q10H [facility] Rx#: [id number] Oral 160 Output: Drainage 15 5 right bilary drain 15 5 Urine 1000 1200 Uretheral ([place]) 1200 Other: Voiding Method Indwelling Catheter Indwelling Catheter # Voids 0 - Exam GENERAL: Somnolent, jaundiced NECK: Normal range of motion, supple without lymphadenopathy or JVD, no thyromegaly LUNGS: Breath sounds coarse to auscultation bilaterally and equal. No wheezes rales or rhonchi. HEART: Regular rate and rhythm without murmurs, rubs or gallops.S1S2 Normal ABDOMEN: Soft, min tender, hypooactive bowel sounds. No guarding, no rebound. No masses appreciated. EXTREMITIES: Normal range of motion, no pitting or edema. No clubbing or cyanosis. NEUROLOGICAL: Cranial nerves II through XII grossly intact. She is somnolent in bed. PSYCH: Distressed due to nausea this time. SKIN: Warm, Dry, normal turgor, no rashes or lesions noted. - Labs CBC & Chem 7: 05/16/18 09:36 05/15/18 09:30 Labs: Abnormal Lab Results - Last 24 Hours (Table) 05/16/18 Range/Units 09:36 WBC 18.7 H (3.8-10.6) k/uL RBC 3.79 L (3.80-5.40) m/uL Hgb 10.5 L (11.4-16.0) gm/dL Hct 31.1 L (34.0-46.0) % Neutrophils # (Manual) 13.60 H (1.3-7.7) k/uL Metamyelocytes # (Man) 0.75 H (0) k/uL Myelocytes # (Manual) 1.68 H (0) k/uL Microbiology - Last 24 Hours (Table) 05/12/18 19:20 Blood Culture - Preliminary Blood No Growth after 96 hours 05/12/18 16:53 Blood Culture - Preliminary Blood No Growth after 96 hours Assessment and Plan (1) Dehydration Current Visit: Yes Status: Acute Code(s): E86.0 - DEHYDRATION SNOMED Code( s): 99114302 (2) Hepatic encephalopathy Current Visit: Yes Status: Acute Code(s): K72.90 - HEPATIC FAILURE, UNSPECIFIED WITHOUT COMA SNOMED Code(s): 32344544 (3) Status post chemotherapy Current Visit: Yes Status: Acute Code(s): Z92.21 - PERSONAL HISTORY OF ANTINEOPLASTIC CHEMOTHERAPY SNOMED Code(s): 852642404 (4) Cholangiocarcinoma Current Visit: No Status: Acute Code(s): C22.1 - INTRAHEPATIC BILE DUCT CARCINOMA SNOMED Code(s): 403989794 (5) Status post chemoradiation Current Visit: No Status: Acute Code(s): Z92.3 - PERSONAL HISTORY OF IRRADIATION; Z92.21 - PERSONAL HISTORY OF ANTINEOPLASTIC CHEMOTHERAPY SNOMED Code(s): 541847403 Plan: At this time I'll discontinue her oxycodone in favor of Roxanol. We will add some Zofran due to her nausea. I will wait on hematology oncology further recommendations. Medications were reviewed today. We'll wait on her laboratory studies including ammonia. She'll be reevaluated in the next 24 hours.
[2018-05-17 11:38] LABS: Carbon Dioxide 26 mmol/L (22-30); Chloride 102 mmol/L (98-107); Glucose 117 mg/dL (74-99); Potassium 3.6 mmol/L (3.5-5.1); Sodium 135 mmol/L (137-145)
[2018-05-17 11:39] LABS: ALT 41 U/L (9-52); AST 42 U/L (14-36); Albumin 2.9 g/dL (3.5-5.0); Alkaline Phosphatase 476 U/L (38-126); Anion Gap 7 mmol/L; Blood Urea Nitrogen 9 mg/dL (7-17); Calcium 8.7 mg/dL (8.4-10.2); Total Bilirubin 3.6 mg/dL (0.2-1.3); Total Protein 5.8 g/dL (6.3-8.2)
[2018-05-17] MEDS ORDERED: ATROPINE OPHTH SOLN 1% 5ML BTL SUBLINGUAL PRN (14:23)
--- NOTE | 2018-05-17 14:48 | P.DS ---
Providers Date of admission: 05/12/18 15:30 Expected date of discharge: 05/17/18 Attending physician: Chet Mortensen Consults: 05/12/18 18:07 Consult Physician Routine Consulting Provider: Sam Jesus Jr Consult Reason/Comments: Medical Management, PKTY Do you want consulting provider notified?: Yes Primary care physician: Jhonatan Solomon - Discharge Diagnosis(es) (1) Dehydration Current Visit: Yes Status: Acute (2) Hepatic encephalopathy Current Visit: Yes Status: Acute (3) Status post chemotherapy Current Visit: Yes Status: Acute (4) Cholangiocarcinoma Current Visit: No Status: Acute (5) Status post chemoradiation Current Visit: No Status: Acute Hospital Course: PER HEM/ONC Carrie is a pleasant 62 year old female patient who is well known to our practice for her recent diagnosis of Adenocarcinoma, consistent with Pancreatobiliary origin. She originally was diagnosed from Lymph node biopsy on 02/08/18 after presenting with obtructive, painless jaundice. ERCP was completed and multiple stents and PTC were placed. On 04/09/18 MRI of abdomen revealed large mass measuring 5.4x4.6x3.7cm centrally in liver abupting porthepatic with multiple enlarged lymph nodes. She was not a surgical candidate , therefore she was refcommended for chemotherapy, this is when she decided to transfer care to primary oncologist Dr. Mortensen to receive closer to home. My first time meeting Carrie was on April 22. She appeared at that time very ill , cachetic. She was accompanied by son and who expressed frustration for her declining state. That appointment we had a long discussion on goals of care. We discussed options of hospi ce versus palliative versus aggressive treatment, with knowing the aggressive treatment was still in the realm of a palliative/non-curable goal. Prior to starting chemo her performance status was declining radidly as she had a difficult time holding food down, she had perisstent nausea and vomiting, difficulties moving bowels and was not trying to increase overall strength as apppeared she was rather depressed about diagnosis and outcomes. On April 22: Home care through Palliative care services was consulted. We arranged for PT/OT at home, Increased her pain medication to increase comfort (Fentanyl patch and oxycodone), increased the intensity of her bowel regimen (which apparently has not remained compliant with ), Initiated Marinol and Megace to assist with anorexia, decreased po intake, increased overall antiemetic regimen (persistent nausea felt to be related to persistent constipation, which was worsened with dehydration, lack of eating, drinking and minimal activity. Low dose ativan was ordered for nausea and depression, abdominal xray confirmed large amount stool, no obstruction, therfore Senna s and miralax ordered. She went on to have decreased dose cycle one of cisplatin and gemsar, she tolerated well and with supportive care she was improving, and working with palliative care at home to rebuild strength. Today she presented to office to see Dr. Mortensen, her was with her. She has not been eating or drinking the past two days, per no BM the past 10 days, she takes supportive medications when they can remeber although she is sleeping a lot that he doiesnt have her taking daily. - Direct admission to [facility]: Fore Severe Dehydration secondary to failure to thrive Full stern culture, labs, Abdominal and chest imaging has been ordered. I discussed goals of care again with , we discussed code status although he was not able to make a descision as he states I want her to live. We will re- discuss when she returns from scan. She is inappropriate with her responses and answers are a little confused although her voice is clear. Her skin is dry and flakey she is clinically dehydrated. No fevers or chills. unable to move legs, they are bent and she is starting to have skin breakdown on back side. She states she can not tell when she has to urinate and no desire for BM. 05/17/2018 PAteint continues to do poorly and it was decided to make Her hospice and admit to [facility] home today. Plan - Discharge Summary Discharge Rx Participant: No New Discharge Prescriptions: New Atropine Ophth Soln 1% 5Ml [Isopto Atropine 1% 5Ml] 2 drops SUBLINGUAL QID PRN #1 bottle PRN Reason: Secretions Clotrimazole Katarina [Mycelex Katarina] 10 mg PO 5XD #50 katarina fentaNYL 75MCG/HR PATCH [Duragesic 75MCG/HR] 1 patch TRANSDERM Q72H #10 patch Lactulose [Cephulac] 20 gm PO TID ml LORazepam ORAL CONC [Ativan Intensol] 1 mg PO Q1H PRN #30 ml PRN Reason: Anxiety MORPHINE ORAL JEET CONC 20mg/mL [Roxanol Oral Soln Conc 20MG/ML] 5 mg PO Q1HR PRN 10 Days #30 ml PRN Reason: Pain Continue Dronabinol [Marinol] 10 mg PO HS diphenhydrAMINE [Benadryl] 25 mg PO Q6HR PRN PRN Reason: Itching fentaNYL 75MCG/HR PATCH [Duragesic 75MCG/HR] 75 mcg TRANSDERM Q72H Prochlorperazine Suppository [Compazine] 25 mg RECTAL DAILY PRN PRN Reason: Nausea Prochlorperazine [Compazine] 10 mg PO Q6HR PRN PRN Reason: Nausea Omeprazole 20 mg PO BID Sennosides/Docusate Sodium [Candace Colace] 2 tab PO HS Lactulose 20 gram PO DAILY Dexamethasone [Decadron] 4 mg PO DIRECTED Na Phos,M-B/Na Phos,Di-Ba [Fleet Adult] 133 ml RECTAL DAILY PRN PRN Reason: UNTIL BOWEL MOVEMENT Discontinued oxyCODONE HCL 10 mg PO Q3H PRN PRN Reason: Pain oxyCODONE HCL [Roxicodone] 5 mg PO Q6H PRN PRN Reason: Pain Nystatin 100,000 Unit/ml Susp [Mycostatin Oral Susp] 500,000 unit PO DIRECTED LORazepam [Ativan] 0.5 mg PO Q6HR Discharge Medication List Dronabinol [Marinol] 10 mg PO HS 03/29/18 [History] diphenhydrAMINE [Benadryl] 25 mg PO Q6HR PRN 03/29/18 [History] fentaNYL 75MCG/HR PATCH [Duragesic 75MCG/HR] 75 mcg TRANSDERM Q72H 04/09/18 [ History] Dexamethasone [Decadron] 4 mg PO DIRECTED 05/12/18 [History] Lactulose 20 gram PO DAILY 05/12/18 [History] Na Phos,M-B/Na Phos,Di-Ba [Fleet Adult] 133 ml RECTAL DAILY PRN 05/12/18 [ History] Omeprazole 20 mg PO BID 05/12/18 [History] Prochlorperazine Suppository [Compazine] 25 mg RECTAL DAILY PRN 05/12/18 [ History] Prochlorperazine [Compazine] 10 mg PO Q6HR PRN 05/12/18 [History] Sennosides/Docusate Sodium [Candace Colace] 2 tab PO HS 05/12/18 [History] Atropine Ophth Soln 1% 5Ml [Isopto Atropine 1% 5Ml] 2 drops SUBLINGUAL QID PRN # 1 bottle 05/17/18 [Rx] Clotrimazole Katarina [Mycelex Katarina] 10 mg PO 5XD #50 katarina 05/17/18 [Rx] LORazepam ORAL CONC [Ativan Intensol] 1 mg PO Q1H PRN #30 ml 05/17/18 [Rx] Lactulose [Cephulac] 20 gm PO TID ml 05/17/18 [Rx] MORPHINE ORAL JEET CONC 20mg/mL [Roxanol Oral Soln Conc 20MG/ML] 5 mg PO Q1HR PRN 10 Days #30 ml 05/17/18 [Rx] fentaNYL 75MCG/HR PATCH [Duragesic 75MCG/HR] 1 patch TRANSDERM Q72H #10 patch [Rx] Discharge Disposition: DISCH TO HOSPICE MED FACILTY
[2018-05-17] MEDS: SENNOSIDES-DOCUSATE SODIUM 1 EACH TAB PO SCH (19:56)
[2018-05-18 05:14] VITALS: BP 151/76; PULSE 97; RESP 16; TEMP 97.6
[2018-05-18] MEDS: CLOTRIMAZOLE TROCHE 10 MG TROCHE PO SCH (05:51)
[2018-05-18] MEDS: DRONABINOL 2.5 MG CAP PO SCH (09:16)
[2018-05-18] MEDS: POTAS-SOD-PHOS 278-164-250 MG 1 EACH PACKET PO SCH (09:17)
[2018-05-18] MEDS: LACTULOSE 20 GM/30 ML CUP PO SCH (09:17)
[2018-05-18] MEDS: PANTOPRAZOLE 40 MG TABLET PO SCH (09:17)
[2018-05-18] MEDS: DEXAMETHASONE 4 MG TAB PO SCH (09:17)
[2018-05-18] MEDS: MEGESTROL 400 MG/10 ML CUP PO SCH (09:17)
[2018-05-18] MEDS: ENOXAPARIN 40 MG/0.4 ML SYRINGE SQ SCH (09:19)
[2018-05-18] MEDS: 0.9% NACL WITH KCL 20 MEQ/L 1,000 ML IV SCH (09:20)
== END 2018-05-18 09:52 | disposition hospice, inpatient (51) | DRG 641 ==
LOC: 3NMEDONC 15:30
PROVIDERS: ADMIT Internal Medicine Hematology & Oncology; ATTEND Internal Medicine Hematology & Oncology
DX: E86.0 Dehydration (principal); C22.1 Intrahepatic bile duct carcinoma; R64 Cachexia; B37.0 Candidal stomatitis; C79.9 Secondary malignant neoplasm of unspecified site; G72.81 Critical illness myopathy; E44.0 Moderate protein-calorie malnutrition; K72.90 Hepatic failure, unspecified without coma; Z66 Do not resuscitate; Z51.5 Encounter for palliative care; E87.6 Hypokalemia; E83.39 Other disorders of phosphorus metabolism; E83.42 Hypomagnesemia; F32.9 Major depressive disorder, single episode, unspecified; K59.09 Other constipation; K21.9 Gastro-esophageal reflux disease without esophagitis; R62.7 Adult failure to thrive; M21.372 Foot drop, left foot; Z68.22 Body mass index [BMI] 22.0-22.9, adult; Z71.3 Dietary counseling and surveillance; Z79.891 Long term (current) use of opiate analgesic; Z79.52 Long term (current) use of systemic steroids; Z79.899 Other long term (current) drug therapy; Z92.21 Personal history of antineoplastic chemotherapy; Z96.89 Presence of other specified functional implants; Z74.01 Bed confinement status; Z98.51 Tubal ligation status; Z98.42 Cataract extraction status, left eye; Z98.41 Cataract extraction status, right eye; Z88.5 Allergy status to narcotic agent; Z82.49 Family history of ischemic heart disease and other diseases of the circulatory system; Z82.5 Family history of asthma and other chronic lower respiratory diseases
CPT/HCPCS: 70553; 72158; 72197; 74022; 80053; 81001; 82140; 82607; 82728; 82746; 83540; 83550; 83615; 83735; 84100; 85025; 85610; 85730; 87040; 87086; 93005